=== PATIENT | male | born 1960 | race Caucasian/White ===

== ENCOUNTER 2018-10-25 17:32 | Inpatient (IN) | payer OTHER, MEDICAID ==
[2018-10-25 19:43] LABS: ADD MAN DIFF? NO
[2018-10-25 19:49] LABS: BASOPHILS % 0.1 % (0.0-2.0); EOSINOPHILS % 0.3 % (0.0-7.0); HEMATOCRIT 28.7 % (42.0-52.0); HEMOGLOBIN 9.8 g/dl (14.0-18.0); LYMPHOCYTES # 0.8 10^3/ul (0.8-2.9); MEAN CORPUSCULAR HEMOGLOBIN 29.6 pg (29.0-33.0); MEAN CORPUSCULAR HGB CONC 34.1 g/dl (32.0-37.0); MEAN CORPUSCULAR VOLUME 86.7 fl (82.0-101.0); MEAN PLATELET VOLUME 9.3 fl (7.4-10.4); MONOCYTE # 0.8 10^3/ul (0.3-0.9); MONOCYTES % 7.4 % (0.0-11.0); NEUTROPHIL # 8.6 10^3/ul (1.6-7.5); NEUTROPHILS % 83.5 % (39.0-77.0); PLATELET COUNT 343 10^3/UL (140-415); RED BLOOD COUNT 3.31 10^6/ul (4.70-6.10)
[2018-10-25 19:49] LABS: WHITE BLOOD COUNT 10.3 10^3/ul (4.8-10.8)
[2018-10-25 20:15] LABS: ANION GAP 4 (5-13); BLOOD UREA NITROGEN 25 mg/dl (7-20); CALCIUM 9.1 mg/dl (8.4-10.2); CARBON DIOXIDE 32 mmol/L (21-31); CHLORIDE 94 mmol/L (97-110); CREATININE 1.05 mg/dl (0.61-1.24); Estimated GFR > 60 mL/min (>60); POTASSIUM 4.8 mmol/L (3.5-5.1); SODIUM 130 mmol/L (135-144)
[2018-10-25 20:17] LABS: INR 0.88; PT RATIO 0.9
[2018-10-25 20:21] LABS: GLUCOSE 465 mg/dl (70-220)
[2018-10-25] MEDS ORDERED: ONDANSETRON 4 MG INJ IV ×2 (20:30→21:30)
[2018-10-25] MEDS ORDERED: ACETAMINOPHEN 325 MG TAB PO (20:30)
[2018-10-25 20:33] LABS: C-REACTIVE PROTEIN 20.3 mg/dl (0.0-0.9)
[2018-10-25] MEDS: PIPER-TAZO 3.375 GM IV (PMX) 100 ML IVPB (20:49)
[2018-10-25 20:54] LABS: ERYTHROCYTE SEDIMENTATION RATE 132 mm/Hr (0-20)
[2018-10-25] MEDS ORDERED: GLUCOSE GEL 15 GRAM TUBE PO ×2 (21:30)
[2018-10-25] MEDS ORDERED: GLUCAGON 1 MG INJ IM (21:30)
[2018-10-25] MEDS ORDERED: DEXTROSE 50% 50 ML SYRINGE IV ×2 (21:30)
[2018-10-25] MEDS ORDERED: VANCOMYCIN IV PER PHARMACY XX (21:30)
[2018-10-25] MEDS: SOD CHLORIDE 0.9% 1,000 ML IV ×2 (21:30→23:46)
[2018-10-25] MEDS ORDERED: GLUCOSE GEL 15 GRAM TUBE BUCCAL (21:30)
[2018-10-25] MEDS ORDERED: morphine 2 MG INJ IV (21:30)
[2018-10-25] MEDS ORDERED: HYDROCODONE/APAP (5/325) TAB PO (21:30)
[2018-10-25] MEDS: VANCOMYCIN 1 GM in 250 ML IVPB (23:54)
[2018-10-25] MEDS: DOCUSATE SODIUM 100 MG CAP PO (23:54)
[2018-10-26] MEDS: INSULIN ASPART [NOVOLOG] 3 ML PEN SC ×4 (00:03→17:54)
[2018-10-26] MEDS: ACCU-CHEK XX (02:00)
[2018-10-26] MEDS: PIPER-TAZO 3.375 GM IV (PMX) 100 ML IVPB ×3 (05:18→18:01)
[2018-10-26 05:49] LABS: ADD MAN DIFF? NO
[2018-10-26 05:59] LABS: BASOPHILS % 0.1 % (0.0-2.0); EOSINOPHILS # 0.1 10^3/ul (0.0-0.5); EOSINOPHILS % 0.5 % (0.0-7.0); HEMATOCRIT 24.3 % (42.0-52.0); HEMOGLOBIN 8.1 g/dl (14.0-18.0); LYMPHOCYTES # 1.1 10^3/ul (0.8-2.9); LYMPHOCYTES % 11.7 % (15.0-51.0); MEAN CORPUSCULAR HEMOGLOBIN 28.9 pg (29.0-33.0); MEAN CORPUSCULAR HGB CONC 33.3 g/dl (32.0-37.0); MEAN CORPUSCULAR VOLUME 86.8 fl (82.0-101.0); MEAN PLATELET VOLUME 9.3 fl (7.4-10.4); MONOCYTE # 0.7 10^3/ul (0.3-0.9); MONOCYTES % 7.5 % (0.0-11.0); NEUTROPHIL # 7.4 10^3/ul (1.6-7.5); NEUTROPHILS % 79.7 % (39.0-77.0); PLATELET COUNT 302 10^3/UL (140-415); RED CELL DISTRIBUTION WIDTH 11.9 % (11.5-14.5)
[2018-10-26 05:59] LABS: WHITE BLOOD COUNT 9.3 10^3/ul (4.8-10.8)
[2018-10-26 06:16] LABS: INR 0.98; PROTIME 13.1 Sec (11.9-14.9)
[2018-10-26 06:17] LABS: PARTIAL THROMBOPLASTIN TIME 31.2 Sec (23.0-35.0)
[2018-10-26 06:24] LABS: ALANINE AMINOTRANSFERASE 11 IU/L (13-69); ALBUMIN 2.6 g/dl (3.3-4.9); ALBUMIN/GLOBULIN RATIO 0.83; ALKALINE PHOSPHATASE 113 IU/L (42-121); ANION GAP 4 (5-13); ASPARTATE AMINO TRANSFERASE 17 IU/L (15-46); BILIRUBIN,INDIRECT 0.3 mg/dl (0-1.1); BILIRUBIN,TOTAL 0.3 mg/dl (0.2-1.3); BLOOD UREA NITROGEN 23 mg/dl (7-20); CALCIUM 8.6 mg/dl (8.4-10.2); CARBON DIOXIDE 29 mmol/L (21-31); CHLORIDE 102 mmol/L (97-110); CHOL/HDL RATIO 6.3 RATIO; CHOLESTEROL 211 mg/dl (100-200); CREATININE 0.92 mg/dl (0.61-1.24); Estimated GFR > 60 mL/min (>60); GLUCOSE 244 mg/dl (70-220); HDL CHOLESTEROL 33 mg/dl (28-71); LDL CHOLESTEROL,CALCULATED 143 mg/dl; SODIUM 135 mmol/L (135-144); TOTAL PROTEIN 5.7 g/dl (6.1-8.1); TRIGLYCERIDES 176 mg/dl (0-149)
[2018-10-26 06:53] LABS: C-REACTIVE PROTEIN 17.1 mg/dl (0.0-0.9)
[2018-10-26 06:57] LABS: HEMOGLOBIN A1C 11.4 % (0-5.9)
[2018-10-26] MEDS: DOCUSATE SODIUM 100 MG CAP PO ×2 (08:38→20:36)
[2018-10-26 09:10] LABS: ERYTHROCYTE SEDIMENTATION RATE 127 mm/Hr (0-20)
[2018-10-26] MEDS: VANCOMYCIN 750 MG (PMX) 250 ML IVPB (11:18)
[2018-10-26] MEDS ORDERED: PROPOFOL 20 ML (12:00)
[2018-10-26] MEDS ORDERED: FENTAnyl 50 MCG/ML VIAL (12:31)
[2018-10-26] MEDS ORDERED: MIDAZOLAM 1 MG/ML 2 ML INJ (12:31)
[2018-10-26] MEDS: BUPIVACAINE 0.5% (SDV) 30 ML INJ (12:59)
[2018-10-26] MEDS: POLYMYXIN/BACITRACIN 1L IRRIG (13:00)
[2018-10-26] MEDS: LIDOCAINE 1% (MPF) 30 ML INJ (13:00)
[2018-10-26] MEDS: SOD CHLORIDE 0.9% 1,000 ML IV ×2 (13:20→21:42)
[2018-10-26] MEDS ORDERED: ALBUMIN HUMAN 5% 250 ML IV (13:30)
[2018-10-26] MEDS ORDERED: LABETALOL HCL 20MG INJ IV (13:30)
[2018-10-26] MEDS ORDERED: MEPERIDINE 25 MG INJ IV (13:30)
[2018-10-26] MEDS ORDERED: FENTAnyl 50 MCG/ML VIAL IV ×2 (13:30)
[2018-10-26] MEDS ORDERED: METOCLOPRAMIDE 10 MG INJ IV (13:30)
[2018-10-26] MEDS ORDERED: OXYCODONE/ACETAMINOPHEN (5/325) TAB PO ×2 (13:30)
[2018-10-26] MEDS ORDERED: KETOROLAC 30 MG INJ IV (13:30)
[2018-10-26] MEDS ORDERED: HYDROmorphONE 1 MG/5 ML IV SYRINGE IV ×2 (13:30)
[2018-10-26] MEDS ORDERED: ONDANSETRON 4 MG INJ IV (13:30)
[2018-10-26] MEDS ORDERED: hydrALAzine 20 MG INJ IV (13:30)
[2018-10-26] MEDS ORDERED: EPHEDrine 25 MG/5 ML SYG IV (13:30)
[2018-10-26] MEDS ORDERED: DIPHENHYDRAMINE 50 MG INJ IV (13:30)
[2018-10-26] MEDS ORDERED: ALBUTEROL 0.083% (NEB) 2.5 MG/3 ML AMP HHN (13:30)
[2018-10-26] MEDS: Insulin NOVOLOG SS MILD Algorithm (SS with meals and bedtime) SC ×2 (17:25→20:37)
[2018-10-26] MEDS ORDERED: INSULIN ASPART [NOVOLOG] 3 ML PEN SC (17:30)
[2018-10-26] MEDS: INSULIN GLARGINE [LANTus] (100 UNITS/ML) SYG SC ×2 (20:43)
[2018-10-26] MEDS: hydrALAzine 20 MG INJ IV (21:43)
[2018-10-27] MEDS: PIPER-TAZO 3.375 GM IV (PMX) 100 ML IVPB ×2 (00:29→05:55)
[2018-10-27] MEDS: VANCOMYCIN 750 MG (PMX) 250 ML IVPB ×2 (00:29→10:50)
[2018-10-27] MEDS: ACCU-CHEK XX (02:00)
[2018-10-27] MEDS: SOD CHLORIDE 0.9% 1,000 ML IV (02:40)
[2018-10-27] MEDS: ACETAMINOPHEN 325 MG TAB PO (02:55)
[2018-10-27 05:52] LABS: ADD MAN DIFF? NO
[2018-10-27 05:59] LABS: BASOPHILS % 0.1 % (0.0-2.0); EOSINOPHILS % 0.2 % (0.0-7.0); HEMATOCRIT 24.3 % (42.0-52.0); HEMOGLOBIN 8.4 g/dl (14.0-18.0); LYMPHOCYTES # 0.9 10^3/ul (0.8-2.9); LYMPHOCYTES % 7.5 % (15.0-51.0); MEAN CORPUSCULAR HEMOGLOBIN 29.6 pg (29.0-33.0); MEAN CORPUSCULAR HGB CONC 34.6 g/dl (32.0-37.0); MEAN CORPUSCULAR VOLUME 85.6 fl (82.0-101.0); MEAN PLATELET VOLUME 9.2 fl (7.4-10.4); MONOCYTE # 0.9 10^3/ul (0.3-0.9); MONOCYTES % 8.1 % (0.0-11.0); NEUTROPHIL # 9.6 10^3/ul (1.6-7.5); NEUTROPHILS % 83.3 % (39.0-77.0); PLATELET COUNT 341 10^3/UL (140-415); RED BLOOD COUNT 2.84 10^6/ul (4.70-6.10); RED CELL DISTRIBUTION WIDTH 11.9 % (11.5-14.5)
[2018-10-27 05:59] LABS: WHITE BLOOD COUNT 11.5 10^3/ul (4.8-10.8)
[2018-10-27 06:20] LABS: MAGNESIUM 1.9 mg/dl (1.7-2.5)
[2018-10-27 06:20] LABS: PHOSPHORUS 3.5 mg/dl (2.5-4.9)
[2018-10-27 06:28] LABS: ALANINE AMINOTRANSFERASE 16 IU/L (13-69); ALBUMIN 2.5 g/dl (3.3-4.9); ALKALINE PHOSPHATASE 157 IU/L (42-121); ANION GAP 4 (5-13); ASPARTATE AMINO TRANSFERASE 22 IU/L (15-46); BILIRUBIN,INDIRECT 0.3 mg/dl (0-1.1); BILIRUBIN,TOTAL 0.3 mg/dl (0.2-1.3); BLOOD UREA NITROGEN 20 mg/dl (7-20); CALCIUM 8.4 mg/dl (8.4-10.2); CARBON DIOXIDE 27 mmol/L (21-31); CHLORIDE 105 mmol/L (97-110); CREATININE 0.94 mg/dl (0.61-1.24); Estimated GFR > 60 mL/min (>60); GLUCOSE 122 mg/dl (70-220); POTASSIUM 3.7 mmol/L (3.5-5.1); SODIUM 136 mmol/L (135-144); TOTAL PROTEIN 5.6 g/dl (6.1-8.1)
[2018-10-27] MEDS: Insulin NOVOLOG SS MILD Algorithm (SS with meals and bedtime) SC ×4 (07:00→21:00)
[2018-10-27] MEDS: DOCUSATE SODIUM 100 MG CAP PO ×2 (08:52→20:57)
[2018-10-27] MEDS: DAKINS 0.0125%(1/40) 473 ML SOLUTION TP (08:52)
[2018-10-27] MEDS: INSULIN ASPART [NOVOLOG] 3 ML PEN SC ×3 (09:00→17:56)
[2018-10-27] MEDS: LISINOPRIL 5 MG TAB PO (09:31)
[2018-10-27] MEDS: CHOLECALCIFEROL 2,000 UNIT CAP PO (09:31)
[2018-10-27 10:22] LABS: VANCOMYCIN,TROUGH 11.8 ug/ml (10.0-20.0)
[2018-10-27] MEDS: MEROPENEM 1 GM/50ML(PMX) 50 ML IVPB ×2 (10:48→21:37)
[2018-10-27] MEDS: CLINDAMYCIN 900 MG (PMX) 50 ML IVPB ×2 (12:50→17:50)
[2018-10-27] MEDS: BISACODYL (EC) 5 MG TAB PO (19:05)
[2018-10-27] MEDS: ATORVASTATIN 40 MG TAB PO (20:57)
[2018-10-27] MEDS: INSULIN GLARGINE [LANTus] (100 UNITS/ML) SYG SC (21:01)
[2018-10-27] MEDS: VANCOMYCIN 1 GM 250 ML IVPB (22:29)
[2018-10-28] MEDS: CLINDAMYCIN 900 MG (PMX) 50 ML IVPB ×3 (00:37→12:51)
[2018-10-28] MEDS: ACCU-CHEK XX (02:00)
[2018-10-28] MEDS: SOD CHLORIDE 0.9% 1,000 ML IV ×2 (02:16→17:41)
[2018-10-28] MEDS: INSULIN ASPART [NOVOLOG] 3 ML PEN SC ×8 (05:22→20:52)
[2018-10-28] MEDS: MEROPENEM 1 GM/50ML(PMX) 50 ML IVPB (05:24)
[2018-10-28 05:29] LABS: ADD MAN DIFF? NO
[2018-10-28 05:31] LABS: BASOPHILS % 0.3 % (0.0-2.0); EOSINOPHILS % 0.4 % (0.0-7.0); HEMATOCRIT 24.7 % (42.0-52.0); HEMOGLOBIN 8.6 g/dl (14.0-18.0); LYMPHOCYTES # 1.2 10^3/ul (0.8-2.9); LYMPHOCYTES % 11.3 % (15.0-51.0); MEAN CORPUSCULAR HGB CONC 34.8 g/dl (32.0-37.0); MEAN CORPUSCULAR VOLUME 86.1 fl (82.0-101.0); MEAN PLATELET VOLUME 9.2 fl (7.4-10.4); MONOCYTE # 0.8 10^3/ul (0.3-0.9); MONOCYTES % 8.2 % (0.0-11.0); NEUTROPHIL # 8.1 10^3/ul (1.6-7.5); NEUTROPHILS % 79.2 % (39.0-77.0); PLATELET COUNT 385 10^3/UL (140-415); RED BLOOD COUNT 2.87 10^6/ul (4.70-6.10); RED CELL DISTRIBUTION WIDTH 11.9 % (11.5-14.5)
[2018-10-28 05:31] LABS: WHITE BLOOD COUNT 10.2 10^3/ul (4.8-10.8)
[2018-10-28 06:02] LABS: MAGNESIUM 1.9 mg/dl (1.7-2.5)
[2018-10-28 06:02] LABS: PHOSPHORUS 3.5 mg/dl (2.5-4.9)
[2018-10-28 06:29] LABS: ALANINE AMINOTRANSFERASE 20 IU/L (13-69); ALBUMIN 2.5 g/dl (3.3-4.9); ALKALINE PHOSPHATASE 190 IU/L (42-121); ANION GAP 6 (5-13); ASPARTATE AMINO TRANSFERASE 20 IU/L (15-46); BILIRUBIN,INDIRECT 0.3 mg/dl (0-1.1); BILIRUBIN,TOTAL 0.3 mg/dl (0.2-1.3); BLOOD UREA NITROGEN 26 mg/dl (7-20); CALCIUM 8.4 mg/dl (8.4-10.2); CARBON DIOXIDE 25 mmol/L (21-31); CHLORIDE 104 mmol/L (97-110); CREATININE 1.06 mg/dl (0.61-1.24); Estimated GFR > 60 mL/min (>60); GLUCOSE 180 mg/dl (70-220); SODIUM 135 mmol/L (135-144); TOTAL PROTEIN 5.7 g/dl (6.1-8.1)
[2018-10-28 06:30] LABS: ALBUMIN/GLOBULIN RATIO 0.78
[2018-10-28] MEDS ORDERED: HEPARIN 1000 UNITS/ML 10 ML INJ (07:54)
[2018-10-28] MEDS: ASPIRIN (EC) 81 MG TAB PO (10:48)
[2018-10-28] MEDS: LISINOPRIL 5 MG TAB PO (10:48)
[2018-10-28] MEDS: CHOLECALCIFEROL 2,000 UNIT CAP PO (10:48)
[2018-10-28] MEDS: DOCUSATE SODIUM 100 MG CAP PO ×2 (10:48→20:49)
[2018-10-28] MEDS: CLOPIDOGREL 300 MG TAB PO (10:48)
[2018-10-28] MEDS: VANCOMYCIN 1 GM 250 ML IVPB ×2 (10:49→22:38)
[2018-10-28] MEDS: DAKINS 0.0125%(1/40) 473 ML SOLUTION TP (10:49)
[2018-10-28 11:16] LABS: ERYTHROCYTE SEDIMENTATION RATE > 130 mm/Hr (0-20)
[2018-10-28 11:21] LABS: C-REACTIVE PROTEIN 21.4 mg/dl (0.0-0.9)
[2018-10-28 12:25] LABS: PROCALCITONIN 0.33 ng/mL (0.00-0.10)
[2018-10-28] MEDS: BISACODYL (EC) 5 MG TAB PO (15:39)
[2018-10-28] MEDS: CEFTRIAXONE 1 GM/50 ML (PMX) 50 ML IVPB (17:07)
[2018-10-28] MEDS: ATORVASTATIN 40 MG TAB PO (20:49)
[2018-10-28] MEDS: INSULIN GLARGINE [LANTus] (100 UNITS/ML) SYG SC (20:51)
[2018-10-29] MEDS: ACCU-CHEK XX (02:00)
[2018-10-29 05:45] LABS: ADD MAN DIFF? NO
[2018-10-29 05:48] LABS: BASOPHILS % 0.1 % (0.0-2.0); EOSINOPHILS # 0.1 10^3/ul (0.0-0.5); EOSINOPHILS % 0.5 % (0.0-7.0); HEMATOCRIT 25.2 % (42.0-52.0); HEMOGLOBIN 8.5 g/dl (14.0-18.0); LYMPHOCYTES # 1.1 10^3/ul (0.8-2.9); LYMPHOCYTES % 10.9 % (15.0-51.0); MEAN CORPUSCULAR HEMOGLOBIN 29.4 pg (29.0-33.0); MEAN CORPUSCULAR HGB CONC 33.7 g/dl (32.0-37.0); MEAN CORPUSCULAR VOLUME 87.2 fl (82.0-101.0); MONOCYTE # 0.7 10^3/ul (0.3-0.9); NEUTROPHILS % 80.8 % (39.0-77.0); PLATELET COUNT 419 10^3/UL (140-415); RED BLOOD COUNT 2.89 10^6/ul (4.70-6.10); RED CELL DISTRIBUTION WIDTH 11.9 % (11.5-14.5)
[2018-10-29 05:48] LABS: WHITE BLOOD COUNT 9.9 10^3/ul (4.8-10.8)
[2018-10-29 06:11] LABS: ALANINE AMINOTRANSFERASE 17 IU/L (13-69); ALBUMIN 2.5 g/dl (3.3-4.9); ALBUMIN/GLOBULIN RATIO 0.73; ALKALINE PHOSPHATASE 207 IU/L (42-121); ANION GAP 4 (5-13); ASPARTATE AMINO TRANSFERASE 18 IU/L (15-46); BILIRUBIN,INDIRECT 0.2 mg/dl (0-1.1); BILIRUBIN,TOTAL 0.2 mg/dl (0.2-1.3); BLOOD UREA NITROGEN 30 mg/dl (7-20); CALCIUM 8.3 mg/dl (8.4-10.2); CARBON DIOXIDE 26 mmol/L (21-31); CHLORIDE 104 mmol/L (97-110); CREATININE 1.02 mg/dl (0.61-1.24); Estimated GFR > 60 mL/min (>60); GLUCOSE 179 mg/dl (70-220); POTASSIUM 3.9 mmol/L (3.5-5.1); SODIUM 134 mmol/L (135-144); TOTAL PROTEIN 5.9 g/dl (6.1-8.1)
[2018-10-29] MEDS: SOD CHLORIDE 0.9% 1,000 ML IV ×2 (06:36→21:11)
[2018-10-29 06:48] LABS: MAGNESIUM 1.9 mg/dl (1.7-2.5)
[2018-10-29 06:48] LABS: PHOSPHORUS 3.2 mg/dl (2.5-4.9)
[2018-10-29] MEDS: INSULIN ASPART [NOVOLOG] 3 ML PEN SC ×7 (08:54→21:15)
[2018-10-29] MEDS: ASPIRIN (EC) 81 MG TAB PO (09:31)
[2018-10-29] MEDS: DOCUSATE SODIUM 100 MG CAP PO ×2 (09:31→21:11)
[2018-10-29] MEDS: CHOLECALCIFEROL 2,000 UNIT CAP PO (09:31)
[2018-10-29] MEDS: BISACODYL (EC) 5 MG TAB PO (09:31)
[2018-10-29] MEDS: LISINOPRIL 5 MG TAB PO (09:31)
[2018-10-29] MEDS: CLOPIDOGREL 75 MG TAB PO (09:32)
[2018-10-29] MEDS: DAKINS 0.0125%(1/40) 473 ML SOLUTION TP (09:33)
[2018-10-29 10:27] LABS: VANCOMYCIN,TROUGH 18.9 ug/ml (10.0-20.0)
[2018-10-29] MEDS: VANCOMYCIN 1 GM 250 ML IVPB (11:47)
[2018-10-29 16:37] LABS: CREATININE, RANDOM URINE 50 mg/dL (20-320); MICROALBUMIN 128.4 mg/dL; MICROALBUMIN/CREATININE RATIO 2568 (<30)
[2018-10-29] MEDS: CEFTRIAXONE 1 GM/50 ML (PMX) 50 ML IVPB (17:03)
[2018-10-29] MEDS: ATORVASTATIN 40 MG TAB PO (21:11)
[2018-10-29] MEDS: INSULIN GLARGINE [LANTus] (100 UNITS/ML) SYG SC (21:14)
[2018-10-29] MEDS: HEPARIN 5,000 UNIT/1 ML VIAL SC (21:16)
[2018-10-29] MEDS: VANCOMYCIN 750 MG (PMX) 250 ML IVPB (23:11)
[2018-10-30] MEDS: ACCU-CHEK XX (01:22)
[2018-10-30 06:09] LABS: BLOOD UREA NITROGEN 25 mg/dl (7-20)
[2018-10-30 06:09] LABS: CREATININE 0.92 mg/dl (0.61-1.24)
[2018-10-30] MEDS: INSULIN ASPART [NOVOLOG] 3 ML PEN SC ×7 (08:00→21:00)
[2018-10-30] MEDS: DOCUSATE SODIUM 100 MG CAP PO ×2 (08:04→20:57)
[2018-10-30] MEDS: CLOPIDOGREL 75 MG TAB PO (08:04)
[2018-10-30] MEDS: ASPIRIN (EC) 81 MG TAB PO (08:04)
[2018-10-30] MEDS: LISINOPRIL 5 MG TAB PO (08:05)
[2018-10-30] MEDS: CHOLECALCIFEROL 2,000 UNIT CAP PO (08:05)
[2018-10-30] MEDS: HEPARIN 5,000 UNIT/1 ML VIAL SC ×2 (08:09→21:03)
[2018-10-30] MEDS: DAKINS 0.0125%(1/40) 473 ML SOLUTION TP (08:11)
[2018-10-30] MEDS: SOD CHLORIDE 0.9% 1,000 ML IV ×2 (11:12→16:36)
[2018-10-30 11:51] LABS: ERYTHROCYTE SEDIMENTATION RATE 120 mm/Hr (0-20)
[2018-10-30 11:58] LABS: C-REACTIVE PROTEIN 14.9 mg/dl (0.0-0.9)
[2018-10-30] MEDS: VANCOMYCIN 750 MG (PMX) 250 ML IVPB ×2 (12:14→22:45)
[2018-10-30 12:39] LABS: PROCALCITONIN 0.19 ng/mL (0.00-0.10)
[2018-10-30] MEDS: CEFTRIAXONE 1 GM/50 ML (PMX) 50 ML IVPB (16:35)
[2018-10-30] MEDS: ATORVASTATIN 40 MG TAB PO (20:57)
[2018-10-30] MEDS: INSULIN GLARGINE [LANTus] (100 UNITS/ML) SYG SC (21:17)
[2018-10-31] MEDS: SOD CHLORIDE 0.9% 1,000 ML IV (01:30)
[2018-10-31] MEDS: ACCU-CHEK XX (01:31)
[2018-10-31 05:27] LABS: ADD MAN DIFF? NO
[2018-10-31 05:36] LABS: HEMATOCRIT 26.5 % (42.0-52.0); HEMOGLOBIN 8.9 g/dl (14.0-18.0); MEAN CORPUSCULAR VOLUME 86.3 fl (82.0-101.0); RED BLOOD COUNT 3.07 10^6/ul (4.70-6.10)
[2018-10-31 05:36] LABS: WHITE BLOOD COUNT 8.1 10^3/ul (4.8-10.8)
[2018-10-31 05:37] LABS: BASOPHILS % 0.1 % (0.0-2.0); EOSINOPHILS # 0.1 10^3/ul (0.0-0.5); LYMPHOCYTES # 1.4 10^3/ul (0.8-2.9); LYMPHOCYTES % 16.9 % (15.0-51.0); MEAN CORPUSCULAR HGB CONC 33.6 g/dl (32.0-37.0); MONOCYTE # 0.7 10^3/ul (0.3-0.9); MONOCYTES % 8.3 % (0.0-11.0); NEUTROPHIL # 5.9 10^3/ul (1.6-7.5); NEUTROPHILS % 73.1 % (39.0-77.0); PLATELET COUNT 508 10^3/UL (140-415); RED CELL DISTRIBUTION WIDTH 11.9 % (11.5-14.5)
[2018-10-31 05:55] LABS: ANION GAP 4 (5-13); BLOOD UREA NITROGEN 21 mg/dl (7-20); CALCIUM 8.1 mg/dl (8.4-10.2); CARBON DIOXIDE 25 mmol/L (21-31); CHLORIDE 106 mmol/L (97-110); CREATININE 0.76 mg/dl (0.61-1.24); Estimated GFR > 60 mL/min (>60); GLUCOSE 87 mg/dl (70-220); POTASSIUM 3.9 mmol/L (3.5-5.1); SODIUM 135 mmol/L (135-144)
[2018-10-31] MEDS ORDERED: POLYMYXIN/BACITRACIN 1L IRRIG (07:28)
[2018-10-31] MEDS ORDERED: PROPOFOL 20 ML (07:40)
[2018-10-31] MEDS ORDERED: MIDAZOLAM 1 MG/ML 2 ML INJ (07:40)
[2018-10-31] MEDS ORDERED: FENTAnyl 50 MCG/ML VIAL (07:41)
[2018-10-31] MEDS ORDERED: ROPIVACAINE 0.2% 20 ML VIAL (07:41)
[2018-10-31] MEDS: INSULIN ASPART [NOVOLOG] 3 ML PEN SC ×7 (08:00→20:20)
[2018-10-31] MEDS ORDERED: OXYCODONE/ACETAMINOPHEN (5/325) TAB PO ×2 (08:00)
[2018-10-31] MEDS ORDERED: HYDROmorphONE 1 MG/5 ML IV SYRINGE IV ×3 (08:00)
[2018-10-31] MEDS ORDERED: LABETALOL HCL 20MG INJ IV (08:00)
[2018-10-31] MEDS ORDERED: ONDANSETRON 4 MG INJ IV (08:00)
[2018-10-31] MEDS ORDERED: FENTAnyl 50 MCG/ML VIAL IV ×3 (08:00)
[2018-10-31] MEDS: LISINOPRIL 5 MG TAB PO (09:00)
[2018-10-31] MEDS: CLOPIDOGREL 75 MG TAB PO (09:00)
[2018-10-31] MEDS: ASPIRIN (EC) 81 MG TAB PO (09:00)
[2018-10-31] MEDS: DAKINS 0.0125%(1/40) 473 ML SOLUTION TP (09:00)
[2018-10-31] MEDS: CHOLECALCIFEROL 2,000 UNIT CAP PO (09:00)
[2018-10-31] MEDS: HEPARIN 5,000 UNIT/1 ML VIAL SC ×2 (09:00→20:19)
[2018-10-31] MEDS: DOCUSATE SODIUM 100 MG CAP PO ×2 (09:29→21:32)
[2018-10-31] MEDS: hydrALAzine 20 MG INJ IV (10:00)
[2018-10-31] MEDS: VANCOMYCIN 750 MG (PMX) 250 ML IVPB ×2 (10:57→23:04)
[2018-10-31] MEDS: CEFTRIAXONE 1 GM/50 ML (PMX) 50 ML IVPB (15:17)
[2018-10-31] MEDS: INSULIN GLARGINE [LANTus] (100 UNITS/ML) SYG SC (20:18)
[2018-10-31] MEDS: ATORVASTATIN 40 MG TAB PO (20:19)
[2018-11-01] MEDS: ACCU-CHEK XX (01:54)
[2018-11-01 05:36] LABS: ADD MAN DIFF? NO
[2018-11-01 05:41] LABS: BASOPHILS % 0.2 % (0.0-2.0); EOSINOPHILS # 0.1 10^3/ul (0.0-0.5); EOSINOPHILS % 0.5 % (0.0-7.0); HEMATOCRIT 24.1 % (42.0-52.0); HEMOGLOBIN 8.4 g/dl (14.0-18.0); LYMPHOCYTES % 10.1 % (15.0-51.0); MEAN CORPUSCULAR HEMOGLOBIN 29.9 pg (29.0-33.0); MEAN CORPUSCULAR HGB CONC 34.9 g/dl (32.0-37.0); MEAN CORPUSCULAR VOLUME 85.8 fl (82.0-101.0); MEAN PLATELET VOLUME 8.8 fl (7.4-10.4); MONOCYTE # 0.8 10^3/ul (0.3-0.9); MONOCYTES % 7.9 % (0.0-11.0); NEUTROPHILS % 80.9 % (39.0-77.0); PLATELET COUNT 506 10^3/UL (140-415); RED BLOOD COUNT 2.81 10^6/ul (4.70-6.10); RED CELL DISTRIBUTION WIDTH 11.8 % (11.5-14.5)
[2018-11-01 05:41] LABS: WHITE BLOOD COUNT 9.9 10^3/ul (4.8-10.8)
[2018-11-01 06:01] LABS: ANION GAP 5 (5-13); BLOOD UREA NITROGEN 21 mg/dl (7-20); CALCIUM 8.1 mg/dl (8.4-10.2); CARBON DIOXIDE 24 mmol/L (21-31); CHLORIDE 106 mmol/L (97-110); CREATININE 0.71 mg/dl (0.61-1.24); Estimated GFR > 60 mL/min (>60); GLUCOSE 88 mg/dl (70-220); POTASSIUM 3.7 mmol/L (3.5-5.1); SODIUM 135 mmol/L (135-144)
[2018-11-01] MEDS: INSULIN ASPART [NOVOLOG] 3 ML PEN SC ×7 (08:00→21:04)
[2018-11-01] MEDS: LISINOPRIL 5 MG TAB PO (08:24)
[2018-11-01] MEDS: ASPIRIN (EC) 81 MG TAB PO (08:24)
[2018-11-01] MEDS: CLOPIDOGREL 75 MG TAB PO (08:24)
[2018-11-01] MEDS: HEPARIN 5,000 UNIT/1 ML VIAL SC ×2 (08:31→21:05)
[2018-11-01] MEDS: DAKINS 0.0125%(1/40) 473 ML SOLUTION TP (08:31)
[2018-11-01] MEDS: CHOLECALCIFEROL 2,000 UNIT CAP PO (10:30)
[2018-11-01] MEDS: DOCUSATE SODIUM 100 MG CAP PO ×2 (10:30→21:01)
[2018-11-01] MEDS: VANCOMYCIN 750 MG (PMX) 250 ML IVPB ×2 (10:33→23:38)
[2018-11-01] MEDS: BISACODYL (EC) 5 MG TAB PO (12:57)
[2018-11-01] MEDS: CEFTRIAXONE 1 GM/50 ML (PMX) 50 ML IVPB (17:35)
[2018-11-01] MEDS: ATORVASTATIN 40 MG TAB PO (21:01)
[2018-11-01] MEDS: INSULIN GLARGINE [LANTus] (100 UNITS/ML) SYG SC (21:04)
[2018-11-01 23:23] LABS: VANCOMYCIN,TROUGH 14.3 ug/ml (10.0-20.0)
[2018-11-02] MEDS: ACCU-CHEK XX (01:48)
[2018-11-02 05:56] LABS: ADD MAN DIFF? NO
[2018-11-02 06:23] LABS: WHITE BLOOD COUNT 7.7 10^3/ul (4.8-10.8)
[2018-11-02 06:23] LABS: BASOPHILS % 0.4 % (0.0-2.0); EOSINOPHILS # 0.1 10^3/ul (0.0-0.5); EOSINOPHILS % 0.8 % (0.0-7.0); HEMATOCRIT 23.4 % (42.0-52.0); LYMPHOCYTES # 1.1 10^3/ul (0.8-2.9); LYMPHOCYTES % 14.4 % (15.0-51.0); MEAN CORPUSCULAR HEMOGLOBIN 29.5 pg (29.0-33.0); MEAN CORPUSCULAR HGB CONC 34.2 g/dl (32.0-37.0); MEAN CORPUSCULAR VOLUME 86.3 fl (82.0-101.0); MEAN PLATELET VOLUME 8.8 fl (7.4-10.4); MONOCYTE # 0.6 10^3/ul (0.3-0.9); NEUTROPHIL # 5.8 10^3/ul (1.6-7.5); PLATELET COUNT 500 10^3/UL (140-415); RED BLOOD COUNT 2.71 10^6/ul (4.70-6.10); RED CELL DISTRIBUTION WIDTH 11.9 % (11.5-14.5)
[2018-11-02 06:48] LABS: ANION GAP 3 (5-13); BLOOD UREA NITROGEN 18 mg/dl (7-20); CARBON DIOXIDE 25 mmol/L (21-31); CHLORIDE 105 mmol/L (97-110); Estimated GFR > 60 mL/min (>60); GLUCOSE 88 mg/dl (70-220); POTASSIUM 3.9 mmol/L (3.5-5.1); SODIUM 133 mmol/L (135-144)
[2018-11-02] MEDS: INSULIN ASPART [NOVOLOG] 3 ML PEN SC ×7 (08:00→20:48)
[2018-11-02] MEDS: CHOLECALCIFEROL 2,000 UNIT CAP PO (08:13)
[2018-11-02] MEDS: CLOPIDOGREL 75 MG TAB PO (08:14)
[2018-11-02] MEDS: LISINOPRIL 5 MG TAB PO (08:14)
[2018-11-02] MEDS: ASPIRIN (EC) 81 MG TAB PO (08:14)
[2018-11-02] MEDS: HEPARIN 5,000 UNIT/1 ML VIAL SC ×2 (08:17→20:45)
[2018-11-02] MEDS: DAKINS 0.0125%(1/40) 473 ML SOLUTION TP (08:19)
[2018-11-02] MEDS: NACL 0.9% 3 ML SYG IV ×2 (08:19→17:52)
[2018-11-02] MEDS: DOCUSATE SODIUM 100 MG CAP PO ×2 (08:29→20:40)
[2018-11-02] MEDS: BISACODYL (EC) 5 MG TAB PO (08:29)
[2018-11-02] MEDS: VANCOMYCIN 750 MG (PMX) 250 ML IVPB ×2 (12:47→23:54)
[2018-11-02] MEDS: CEFTRIAXONE 1 GM/50 ML (PMX) 50 ML IVPB (16:55)
[2018-11-02] MEDS: ATORVASTATIN 40 MG TAB PO (20:40)
[2018-11-02] MEDS: INSULIN GLARGINE [LANTus] (100 UNITS/ML) SYG SC (20:44)
[2018-11-03] MEDS: ACCU-CHEK XX (02:00)
[2018-11-03 06:19] LABS: ADD MAN DIFF? NO
[2018-11-03 06:24] LABS: WHITE BLOOD COUNT 7.8 10^3/ul (4.8-10.8)
[2018-11-03 06:24] LABS: BASOPHILS % 0.4 % (0.0-2.0); EOSINOPHILS % 0.5 % (0.0-7.0); HEMATOCRIT 23.8 % (42.0-52.0); HEMOGLOBIN 8.3 g/dl (14.0-18.0); LYMPHOCYTES # 1.1 10^3/ul (0.8-2.9); LYMPHOCYTES % 13.5 % (15.0-51.0); MEAN CORPUSCULAR HEMOGLOBIN 29.3 pg (29.0-33.0); MEAN CORPUSCULAR HGB CONC 34.9 g/dl (32.0-37.0); MEAN CORPUSCULAR VOLUME 84.1 fl (82.0-101.0); MEAN PLATELET VOLUME 8.6 fl (7.4-10.4); MONOCYTE # 0.7 10^3/ul (0.3-0.9); MONOCYTES % 8.3 % (0.0-11.0); NEUTROPHILS % 76.7 % (39.0-77.0); PLATELET COUNT 537 10^3/UL (140-415); RED BLOOD COUNT 2.83 10^6/ul (4.70-6.10); RED CELL DISTRIBUTION WIDTH 11.8 % (11.5-14.5)
[2018-11-03 06:59] LABS: ANION GAP 4 (5-13); BLOOD UREA NITROGEN 19 mg/dl (7-20); CALCIUM 8.2 mg/dl (8.4-10.2); CARBON DIOXIDE 25 mmol/L (21-31); CHLORIDE 104 mmol/L (97-110); CREATININE 0.79 mg/dl (0.61-1.24); Estimated GFR > 60 mL/min (>60); GLUCOSE 66 mg/dl (70-220); POTASSIUM 3.8 mmol/L (3.5-5.1); SODIUM 133 mmol/L (135-144)
[2018-11-03] MEDS: INSULIN ASPART [NOVOLOG] 3 ML PEN SC ×7 (08:00→20:47)
[2018-11-03] MEDS: DAKINS 0.0125%(1/40) 473 ML SOLUTION TP (08:09)
[2018-11-03] MEDS: ASPIRIN (EC) 81 MG TAB PO (08:22)
[2018-11-03] MEDS: CHOLECALCIFEROL 2,000 UNIT CAP PO (08:22)
[2018-11-03] MEDS: CLOPIDOGREL 75 MG TAB PO (08:22)
[2018-11-03] MEDS: LISINOPRIL 5 MG TAB PO (08:23)
[2018-11-03] MEDS: HEPARIN 5,000 UNIT/1 ML VIAL SC ×2 (08:32→20:52)
[2018-11-03] MEDS: DOCUSATE SODIUM 100 MG CAP PO ×2 (08:33→20:45)
[2018-11-03] MEDS: VANCOMYCIN 750 MG (PMX) 250 ML IVPB ×2 (11:30→23:24)
[2018-11-03] MEDS: CEFTRIAXONE 1 GM/50 ML (PMX) 50 ML IVPB (16:36)
[2018-11-03] MEDS: ATORVASTATIN 40 MG TAB PO (20:46)
[2018-11-03] MEDS: INSULIN GLARGINE [LANTus] (100 UNITS/ML) SYG SC (20:51)
[2018-11-04] MEDS: ACCU-CHEK XX (02:00)
[2018-11-04 05:24] LABS: ADD MAN DIFF? NO
[2018-11-04 05:33] LABS: WHITE BLOOD COUNT 6.1 10^3/ul (4.8-10.8)
[2018-11-04 05:33] LABS: BASOPHILS % 0.5 % (0.0-2.0); EOSINOPHILS # 0.1 10^3/ul (0.0-0.5); EOSINOPHILS % 1.1 % (0.0-7.0); HEMATOCRIT 24.4 % (42.0-52.0); HEMOGLOBIN 8.4 g/dl (14.0-18.0); LYMPHOCYTES % 16.4 % (15.0-51.0); MEAN CORPUSCULAR HEMOGLOBIN 29.5 pg (29.0-33.0); MEAN CORPUSCULAR HGB CONC 34.4 g/dl (32.0-37.0); MEAN CORPUSCULAR VOLUME 85.6 fl (82.0-101.0); MEAN PLATELET VOLUME 8.7 fl (7.4-10.4); MONOCYTE # 0.5 10^3/ul (0.3-0.9); MONOCYTES % 8.5 % (0.0-11.0); NEUTROPHIL # 4.5 10^3/ul (1.6-7.5); NEUTROPHILS % 73.2 % (39.0-77.0); PLATELET COUNT 548 10^3/UL (140-415); RED BLOOD COUNT 2.85 10^6/ul (4.70-6.10); RED CELL DISTRIBUTION WIDTH 11.9 % (11.5-14.5)
[2018-11-04 06:56] LABS: ANION GAP 5 (5-13); BLOOD UREA NITROGEN 19 mg/dl (7-20); CARBON DIOXIDE 25 mmol/L (21-31); CHLORIDE 104 mmol/L (97-110); CREATININE 0.79 mg/dl (0.61-1.24); Estimated GFR > 60 mL/min (>60); GLUCOSE 72 mg/dl (70-220); POTASSIUM 3.9 mmol/L (3.5-5.1); SODIUM 134 mmol/L (135-144)
[2018-11-04] MEDS: INSULIN ASPART [NOVOLOG] 3 ML PEN SC ×7 (08:00→20:41)
[2018-11-04] MEDS: LISINOPRIL 5 MG TAB PO (08:38)
[2018-11-04] MEDS: CLOPIDOGREL 75 MG TAB PO (08:38)
[2018-11-04] MEDS: ASPIRIN (EC) 81 MG TAB PO (08:38)
[2018-11-04] MEDS: CHOLECALCIFEROL 2,000 UNIT CAP PO (08:38)
[2018-11-04] MEDS: HEPARIN 5,000 UNIT/1 ML VIAL SC ×2 (08:41→20:43)
[2018-11-04] MEDS: DAKINS 0.0125%(1/40) 473 ML SOLUTION TP (09:00)
[2018-11-04] MEDS: DOCUSATE SODIUM 100 MG CAP PO ×2 (09:52→20:41)
[2018-11-04] MEDS: VANCOMYCIN 750 MG (PMX) 250 ML IVPB ×2 (11:04→23:14)
[2018-11-04] MEDS: CEFTRIAXONE 1 GM/50 ML (PMX) 50 ML IVPB (16:31)
[2018-11-04] MEDS: ATORVASTATIN 40 MG TAB PO (20:41)
[2018-11-04] MEDS: INSULIN GLARGINE [LANTus] (100 UNITS/ML) SYG SC (20:45)
[2018-11-04] MEDS: BUMETANIDE 1 MG INJ IV (23:14)
[2018-11-05] MEDS: ACCU-CHEK XX (02:00)
[2018-11-05 05:39] LABS: ADD MAN DIFF? NO
[2018-11-05 05:45] LABS: BASOPHILS % 0.5 % (0.0-2.0); EOSINOPHILS # 0.1 10^3/ul (0.0-0.5); HEMATOCRIT 23.7 % (42.0-52.0); HEMOGLOBIN 8.2 g/dl (14.0-18.0); LYMPHOCYTES % 17.7 % (15.0-51.0); MEAN CORPUSCULAR HEMOGLOBIN 29.1 pg (29.0-33.0); MEAN CORPUSCULAR HGB CONC 34.6 g/dl (32.0-37.0); MEAN PLATELET VOLUME 8.7 fl (7.4-10.4); MONOCYTE # 0.5 10^3/ul (0.3-0.9); MONOCYTES % 8.2 % (0.0-11.0); NEUTROPHIL # 4.2 10^3/ul (1.6-7.5); NEUTROPHILS % 72.1 % (39.0-77.0); PLATELET COUNT 537 10^3/UL (140-415); RED BLOOD COUNT 2.82 10^6/ul (4.70-6.10)
[2018-11-05 05:45] LABS: WHITE BLOOD COUNT 5.9 10^3/ul (4.8-10.8)
[2018-11-05 06:06] LABS: ANION GAP 3 (5-13); BLOOD UREA NITROGEN 18 mg/dl (7-20); CARBON DIOXIDE 26 mmol/L (21-31); CHLORIDE 105 mmol/L (97-110); CREATININE 0.71 mg/dl (0.61-1.24); Estimated GFR > 60 mL/min (>60); GLUCOSE 82 mg/dl (70-220); POTASSIUM 3.8 mmol/L (3.5-5.1); SODIUM 134 mmol/L (135-144)
[2018-11-05 06:12] LABS: MAGNESIUM 1.8 mg/dl (1.7-2.5)
[2018-11-05 06:12] LABS: PHOSPHORUS 3.6 mg/dl (2.5-4.9)
[2018-11-05] MEDS: INSULIN ASPART [NOVOLOG] 3 ML PEN SC ×7 (08:00→20:41)
[2018-11-05] MEDS: CLOPIDOGREL 75 MG TAB PO (08:40)
[2018-11-05] MEDS: HEPARIN 5,000 UNIT/1 ML VIAL SC ×2 (08:40→20:43)
[2018-11-05] MEDS: CHOLECALCIFEROL 2,000 UNIT CAP PO (08:41)
[2018-11-05] MEDS: DAKINS 0.0125%(1/40) 473 ML SOLUTION TP (08:41)
[2018-11-05] MEDS: LISINOPRIL 5 MG TAB PO (08:41)
[2018-11-05] MEDS: DOCUSATE SODIUM 100 MG CAP PO ×2 (08:41→20:47)
[2018-11-05] MEDS: ASPIRIN (EC) 81 MG TAB PO (08:41)
[2018-11-05] MEDS: VANCOMYCIN 750 MG (PMX) 250 ML IVPB ×2 (11:30→23:24)
[2018-11-05] MEDS: CEFTRIAXONE 1 GM/50 ML (PMX) 50 ML IVPB (16:24)
[2018-11-05] MEDS: ATORVASTATIN 40 MG TAB PO (20:39)
[2018-11-05] MEDS: INSULIN GLARGINE [LANTus] (100 UNITS/ML) SYG SC (20:43)
[2018-11-05 22:58] LABS: VANCOMYCIN,TROUGH 15.1 ug/ml (10.0-20.0)
[2018-11-06] MEDS: ACCU-CHEK XX (00:41)
[2018-11-06] MEDS: INSULIN ASPART [NOVOLOG] 3 ML PEN SC ×7 (08:00→20:22)
[2018-11-06] MEDS: CLOPIDOGREL 75 MG TAB PO (08:52)
[2018-11-06] MEDS: CHOLECALCIFEROL 2,000 UNIT CAP PO (08:52)
[2018-11-06] MEDS: DOCUSATE SODIUM 100 MG CAP PO ×2 (08:52→20:21)
[2018-11-06] MEDS: LISINOPRIL 5 MG TAB PO (08:52)
[2018-11-06] MEDS: ASPIRIN (EC) 81 MG TAB PO (08:52)
[2018-11-06] MEDS: HEPARIN 5,000 UNIT/1 ML VIAL SC ×2 (08:58→20:24)
[2018-11-06] MEDS: DAKINS 0.0125%(1/40) 473 ML SOLUTION TP (09:00)
[2018-11-06] MEDS: ATORVASTATIN 40 MG TAB PO (20:21)
[2018-11-06] MEDS: INSULIN GLARGINE [LANTus] (100 UNITS/ML) SYG SC (20:24)
[2018-11-07] MEDS: ACCU-CHEK XX (01:09)
[2018-11-07] MEDS: FUROSEMIDE 40 MG INJ IV (01:09)
[2018-11-07] MEDS: INSULIN ASPART [NOVOLOG] 3 ML PEN SC ×7 (08:00→20:17)
[2018-11-07] MEDS: CLOPIDOGREL 75 MG TAB PO (08:12)
[2018-11-07] MEDS: ASPIRIN (EC) 81 MG TAB PO (08:12)
[2018-11-07] MEDS: HEPARIN 5,000 UNIT/1 ML VIAL SC ×2 (08:12→20:24)
[2018-11-07] MEDS: LISINOPRIL 5 MG TAB PO (08:12)
[2018-11-07] MEDS: CHOLECALCIFEROL 2,000 UNIT CAP PO (08:12)
[2018-11-07] MEDS: DAKINS 0.0125%(1/40) 473 ML SOLUTION TP (08:13)
[2018-11-07] MEDS: DOCUSATE SODIUM 100 MG CAP PO ×2 (08:19→20:17)
[2018-11-07] MEDS: ATORVASTATIN 40 MG TAB PO (20:17)
[2018-11-07] MEDS: INSULIN GLARGINE [LANTus] (100 UNITS/ML) SYG SC (20:23)
[2018-11-08] MEDS: ACCU-CHEK XX (02:00)
[2018-11-08] MEDS: INSULIN ASPART [NOVOLOG] 3 ML PEN SC ×7 (08:00→20:14)
[2018-11-08] MEDS: HEPARIN 5,000 UNIT/1 ML VIAL SC ×2 (08:13→20:16)
[2018-11-08] MEDS: DOCUSATE SODIUM 100 MG CAP PO ×3 (08:16→20:16)
[2018-11-08] MEDS: CLOPIDOGREL 75 MG TAB PO (08:17)
[2018-11-08] MEDS: LISINOPRIL 5 MG TAB PO (08:17)
[2018-11-08] MEDS: CHOLECALCIFEROL 2,000 UNIT CAP PO (08:17)
[2018-11-08] MEDS: ASPIRIN (EC) 81 MG TAB PO (08:17)
[2018-11-08] MEDS: DAKINS 0.0125%(1/40) 473 ML SOLUTION TP (08:19)
[2018-11-08] MEDS: POLYETHYLENE GLYCOL 17 GM PACKET PO (20:12)
[2018-11-08] MEDS: ATORVASTATIN 40 MG TAB PO (20:12)
[2018-11-08] MEDS: BISACODYL (EC) 5 MG TAB PO (20:12)
[2018-11-08] MEDS: INSULIN GLARGINE [LANTus] (100 UNITS/ML) SYG SC (20:15)
[2018-11-09] MEDS: ACCU-CHEK XX (02:00)
[2018-11-09] MEDS: INSULIN ASPART [NOVOLOG] 3 ML PEN SC ×7 (08:00→21:00)
[2018-11-09] MEDS: CLOPIDOGREL 75 MG TAB PO (08:46)
[2018-11-09] MEDS: ASPIRIN (EC) 81 MG TAB PO (08:46)
[2018-11-09] MEDS: CHOLECALCIFEROL 2,000 UNIT CAP PO (08:46)
[2018-11-09] MEDS: DAKINS 0.0125%(1/40) 473 ML SOLUTION TP (08:47)
[2018-11-09] MEDS: LISINOPRIL 5 MG TAB PO (08:47)
[2018-11-09] MEDS: POLYETHYLENE GLYCOL 17 GM PACKET PO (08:47)
[2018-11-09] MEDS: DOCUSATE SODIUM 100 MG CAP PO ×2 (08:51→21:24)
[2018-11-09] MEDS: HEPARIN 5,000 UNIT/1 ML VIAL SC ×2 (08:55→21:22)
[2018-11-09] MEDS: ATORVASTATIN 40 MG TAB PO (21:24)
[2018-11-09] MEDS: INSULIN GLARGINE [LANTus] (100 UNITS/ML) SYG SC (21:24)
[2018-11-10] MEDS: ACCU-CHEK XX (02:00)
[2018-11-10] MEDS: INSULIN ASPART [NOVOLOG] 3 ML PEN SC ×7 (08:00→20:52)
[2018-11-10] MEDS: HEPARIN 5,000 UNIT/1 ML VIAL SC ×2 (08:26→20:56)
[2018-11-10] MEDS: DOCUSATE SODIUM 100 MG CAP PO ×2 (08:26→20:53)
[2018-11-10] MEDS: CHOLECALCIFEROL 2,000 UNIT CAP PO (08:27)
[2018-11-10] MEDS: ASPIRIN (EC) 81 MG TAB PO (08:27)
[2018-11-10] MEDS: POLYETHYLENE GLYCOL 17 GM PACKET PO (08:27)
[2018-11-10] MEDS: CLOPIDOGREL 75 MG TAB PO (08:27)
[2018-11-10] MEDS: LISINOPRIL 5 MG TAB PO (08:28)
[2018-11-10] MEDS: DAKINS 0.0125%(1/40) 473 ML SOLUTION TP (08:28)
[2018-11-10] MEDS: CEFAZOLIN 2 GM/50 ML (PMX) 50 ML IVPB (14:00)
[2018-11-10] MEDS: INSULIN GLARGINE [LANTus] (100 UNITS/ML) SYG SC (20:51)
[2018-11-10] MEDS: ATORVASTATIN 40 MG TAB PO (20:52)
[2018-11-11] MEDS: ACCU-CHEK XX (01:30)
[2018-11-11 05:44] LABS: PLATELET COUNT 465 10^3/UL (140-415)
[2018-11-11 05:53] LABS: ADD MAN DIFF? NO
[2018-11-11 06:04] LABS: WHITE BLOOD COUNT 6.7 10^3/ul (4.8-10.8)
[2018-11-11 06:04] LABS: BASOPHILS % 0.5 % (0.0-2.0); EOSINOPHILS # 0.1 10^3/ul (0.0-0.5); EOSINOPHILS % 1.2 % (0.0-7.0); HEMATOCRIT 23.5 % (42.0-52.0); INR 0.92; LYMPHOCYTES # 1.2 10^3/ul (0.8-2.9); LYMPHOCYTES % 18.2 % (15.0-51.0); MEAN CORPUSCULAR HEMOGLOBIN 29.3 pg (29.0-33.0); MEAN CORPUSCULAR VOLUME 86.1 fl (82.0-101.0); MEAN PLATELET VOLUME 9.1 fl (7.4-10.4); MONOCYTE # 0.5 10^3/ul (0.3-0.9); MONOCYTES % 7.4 % (0.0-11.0); NEUTROPHIL # 4.8 10^3/ul (1.6-7.5); NEUTROPHILS % 72.4 % (39.0-77.0); PLATELET COUNT 456 10^3/UL (140-415); PROTIME 12.5 Sec (11.9-14.9); RED BLOOD COUNT 2.73 10^6/ul (4.70-6.10); RED CELL DISTRIBUTION WIDTH 12.7 % (11.5-14.5)
[2018-11-11 06:05] LABS: INR 0.93; PARTIAL THROMBOPLASTIN TIME 28.5 Sec (23.0-35.0); PROTIME 12.6 Sec (11.9-14.9)
[2018-11-11 06:14] LABS: ALANINE AMINOTRANSFERASE 61 IU/L (13-69); ALBUMIN 2.2 g/dl (3.3-4.9); ALBUMIN/GLOBULIN RATIO 0.75; ALKALINE PHOSPHATASE 215 IU/L (42-121); ANION GAP 1 (5-13); ASPARTATE AMINO TRANSFERASE 42 IU/L (15-46); BILIRUBIN,INDIRECT 0.2 mg/dl (0-1.1); BILIRUBIN,TOTAL 0.2 mg/dl (0.2-1.3); BLOOD UREA NITROGEN 33 mg/dl (7-20); CALCIUM 7.8 mg/dl (8.4-10.2); CARBON DIOXIDE 30 mmol/L (21-31); CHLORIDE 99 mmol/L (97-110); CREATININE 0.96 mg/dl (0.61-1.24); Estimated GFR > 60 mL/min (>60); GLUCOSE 203 mg/dl (70-220); POTASSIUM 4.2 mmol/L (3.5-5.1); SODIUM 130 mmol/L (135-144); TOTAL PROTEIN 5.1 g/dl (6.1-8.1)
[2018-11-11] MEDS ORDERED: MINERAL OIL LIGHT 10 ML VIAL (06:48)
[2018-11-11] MEDS ORDERED: LIDOCAINE 1% (MPF) 30 ML INJ (06:48)
[2018-11-11] MEDS ORDERED: MIDAZOLAM 1 MG/ML 2 ML INJ (07:12)
[2018-11-11] MEDS ORDERED: PROPOFOL 20 ML (07:12)
[2018-11-11] MEDS ORDERED: FENTAnyl 50 MCG/ML VIAL (07:13)
[2018-11-11] MEDS ORDERED: hydrALAzine 20 MG INJ IV (08:00)
[2018-11-11] MEDS ORDERED: METOCLOPRAMIDE 10 MG INJ IV (08:00)
[2018-11-11] MEDS ORDERED: MEPERIDINE 25 MG INJ IV (08:00)
[2018-11-11] MEDS ORDERED: HYDROmorphONE 1 MG/5 ML IV SYRINGE IV ×2 (08:00)
[2018-11-11] MEDS ORDERED: FENTAnyl 50 MCG/ML VIAL IV ×2 (08:00)
[2018-11-11] MEDS ORDERED: ONDANSETRON 4 MG INJ IV (08:00)
[2018-11-11] MEDS ORDERED: LABETALOL HCL 20MG INJ IV (08:00)
[2018-11-11] MEDS: POLYMYXIN/BACITRACIN 1L IRRIG IRR (08:09)
[2018-11-11] MEDS: INSULIN ASPART [NOVOLOG] 3 ML PEN SC ×7 (09:38→23:24)
[2018-11-11] MEDS ORDERED: POLYMYXIN/BACITRACIN 1L IRRIG (10:00)
[2018-11-11] MEDS: HEPARIN 5,000 UNIT/1 ML VIAL SC ×2 (10:03→21:01)
[2018-11-11] MEDS: ASPIRIN (EC) 81 MG TAB PO (10:04)
[2018-11-11] MEDS: CLOPIDOGREL 75 MG TAB PO (10:04)
[2018-11-11] MEDS: LISINOPRIL 5 MG TAB PO (10:05)
[2018-11-11] MEDS: CHOLECALCIFEROL 2,000 UNIT CAP PO (10:05)
[2018-11-11] MEDS: DOCUSATE SODIUM 100 MG CAP PO ×2 (10:06→20:49)
[2018-11-11] MEDS: POLYETHYLENE GLYCOL 17 GM PACKET PO (10:06)
[2018-11-11] MEDS: DAKINS 0.0125%(1/40) 473 ML SOLUTION TP (10:08)
[2018-11-11 18:29] LABS: HEMATOCRIT 19.8 % (42.0-52.0)
[2018-11-11 18:32] LABS: HEMOGLOBIN 6.8 g/dl (14.0-18.0)
[2018-11-11] MEDS: ATORVASTATIN 40 MG TAB PO (20:49)
[2018-11-11] MEDS: INSULIN GLARGINE [LANTus] (100 UNITS/ML) SYG SC (23:24)
[2018-11-12] MEDS: ACCU-CHEK XX (01:58)
[2018-11-12] MEDS: INSULIN ASPART [NOVOLOG] 3 ML PEN SC ×7 (08:00→20:38)
[2018-11-12] MEDS: POLYETHYLENE GLYCOL 17 GM PACKET PO (08:47)
[2018-11-12] MEDS: DAKINS 0.0125%(1/40) 473 ML SOLUTION TP (08:48)
[2018-11-12] MEDS: CHOLECALCIFEROL 2,000 UNIT CAP PO (08:48)
[2018-11-12] MEDS: ASPIRIN (EC) 81 MG TAB PO (08:48)
[2018-11-12] MEDS: CLOPIDOGREL 75 MG TAB PO (08:48)
[2018-11-12] MEDS: LISINOPRIL 5 MG TAB PO (08:48)
[2018-11-12] MEDS: DOCUSATE SODIUM 100 MG CAP PO ×2 (08:48→20:35)
[2018-11-12] MEDS: HEPARIN 5,000 UNIT/1 ML VIAL SC ×2 (08:50→20:39)
[2018-11-12 09:44] LABS: ADD MAN DIFF? NO
[2018-11-12 09:46] LABS: BASOPHILS % 0.4 % (0.0-2.0); EOSINOPHILS # 0.1 10^3/ul (0.0-0.5); EOSINOPHILS % 0.7 % (0.0-7.0); HEMATOCRIT 21.8 % (42.0-52.0); HEMOGLOBIN 7.6 g/dl (14.0-18.0); LYMPHOCYTES # 1.3 10^3/ul (0.8-2.9); LYMPHOCYTES % 16.2 % (15.0-51.0); MEAN CORPUSCULAR HGB CONC 34.9 g/dl (32.0-37.0); MEAN CORPUSCULAR VOLUME 86.2 fl (82.0-101.0); MONOCYTE # 0.6 10^3/ul (0.3-0.9); MONOCYTES % 7.3 % (0.0-11.0); NEUTROPHIL # 6.1 10^3/ul (1.6-7.5); NEUTROPHILS % 75.2 % (39.0-77.0); PLATELET COUNT 392 10^3/UL (140-415); RED BLOOD COUNT 2.53 10^6/ul (4.70-6.10)
[2018-11-12 09:46] LABS: WHITE BLOOD COUNT 8.1 10^3/ul (4.8-10.8)
[2018-11-12 10:06] LABS: ANION GAP 3 (5-13); BLOOD UREA NITROGEN 35 mg/dl (7-20); CALCIUM 7.7 mg/dl (8.4-10.2); CARBON DIOXIDE 29 mmol/L (21-31); CHLORIDE 99 mmol/L (97-110); CREATININE 0.88 mg/dl (0.61-1.24); Estimated GFR > 60 mL/min (>60); GLUCOSE 110 mg/dl (70-220); POTASSIUM 4.1 mmol/L (3.5-5.1); SODIUM 131 mmol/L (135-144)
[2018-11-12] MEDS: ATORVASTATIN 40 MG TAB PO (20:35)
[2018-11-12] MEDS: INSULIN GLARGINE [LANTus] (100 UNITS/ML) SYG SC (20:37)
[2018-11-12] MEDS ORDERED: INSULIN GLARGINE [LANTus] (100 UNITS/ML) SYG SC (22:30)
[2018-11-13] MEDS: ACCU-CHEK XX (02:00)
[2018-11-13] MEDS: POLYETHYLENE GLYCOL 17 GM PACKET PO (08:42)
[2018-11-13] MEDS: CLOPIDOGREL 75 MG TAB PO (08:43)
[2018-11-13] MEDS: CHOLECALCIFEROL 2,000 UNIT CAP PO (08:43)
[2018-11-13] MEDS: ASPIRIN (EC) 81 MG TAB PO (08:43)
[2018-11-13] MEDS: LISINOPRIL 5 MG TAB PO (08:44)
[2018-11-13] MEDS: INSULIN ASPART [NOVOLOG] 3 ML PEN SC ×7 (08:48→20:34)
[2018-11-13] MEDS: HEPARIN 5,000 UNIT/1 ML VIAL SC ×2 (08:49→20:33)
[2018-11-13] MEDS: DAKINS 0.0125%(1/40) 473 ML SOLUTION TP (08:55)
[2018-11-13] MEDS: DOCUSATE SODIUM 100 MG CAP PO ×2 (09:13→20:35)
[2018-11-13 10:54] LABS: WHITE BLOOD COUNT 7.2 10^3/ul (4.8-10.8)
[2018-11-13 10:54] LABS: ABNORMAL IP MESSAGE 1; HEMATOCRIT 19.4 % (42.0-52.0); MEAN CORPUSCULAR HEMOGLOBIN 30.3 pg (29.0-33.0); MEAN CORPUSCULAR HGB CONC 34.5 g/dl (32.0-37.0); MEAN CORPUSCULAR VOLUME 87.8 fl (82.0-101.0); MEAN PLATELET VOLUME 9.3 fl (7.4-10.4); PLATELET COUNT 333 10^3/UL (140-415); POSITIVE DIFF @See below; RED BLOOD COUNT 2.21 10^6/ul (4.70-6.10)
[2018-11-13 10:59] LABS: ADD MAN DIFF? YES; HEMOGLOBIN 6.7 g/dl (14.0-18.0)
[2018-11-13 11:10] LABS: ANION GAP 1 (5-13); BLOOD UREA NITROGEN 31 mg/dl (7-20); CALCIUM 7.7 mg/dl (8.4-10.2); CARBON DIOXIDE 28 mmol/L (21-31); CHLORIDE 101 mmol/L (97-110); CREATININE 0.92 mg/dl (0.61-1.24); Estimated GFR > 60 mL/min (>60); GLUCOSE 138 mg/dl (70-220); POTASSIUM 4.5 mmol/L (3.5-5.1); SODIUM 130 mmol/L (135-144)
[2018-11-13 12:48] LABS: ANISOCYTOSIS 1+ (0-0); BAND NEUTROPHILS % (M) 1 % (0-4); BURR CELLS 1+ (0-0); EOSINOPHILS % (M) 1 % (0-7); LYMPHOCYTES #M 0.7 10^3/ul (0.8-2.9); LYMPHOCYTES % (M) 11 % (15-51); MICROCYTOSIS 1+ (0-0); MONOCYTE #M 0.3 10^3/ul (0.3-0.9); MONOCYTES % (M) 5 % (0-11); PLATELET ESTIMATE NORMAL; POIKILOCYTOSIS 1+ (0-0); SEG NEUT #M 5.9 10^3/ul (1.6-7.5); SEGMENTED NEUTROPHILS (M) % 82 % (39-77); SMUDGE%M 5 % (0-0)
[2018-11-13] MEDS: FLUCONAZOLE 200 MG TAB PO ×2 (13:04→20:27)
[2018-11-13] MEDS: CIPROFLOXACIN 250 MG TAB PO ×2 (13:04→20:27)
[2018-11-13 13:54] LABS: IMMEDIATE SPIN CROSSMATCH 1 2
[2018-11-13] MEDS: SOD CHLORIDE 0.9% 250 ML IV* (14:18)
[2018-11-13] MEDS: ATORVASTATIN 40 MG TAB PO (20:27)
[2018-11-13] MEDS: INSULIN GLARGINE [LANTus] (100 UNITS/ML) SYG SC (20:35)
[2018-11-14] MEDS: ACCU-CHEK XX (02:00)
[2018-11-14 06:18] LABS: ADD MAN DIFF? NO
[2018-11-14 06:24] LABS: BASOPHILS % 0.3 % (0.0-2.0); EOSINOPHILS # 0.1 10^3/ul (0.0-0.5); EOSINOPHILS % 0.9 % (0.0-7.0); HEMATOCRIT 24.1 % (42.0-52.0); HEMOGLOBIN 8.1 g/dl (14.0-18.0); LYMPHOCYTES # 1.1 10^3/ul (0.8-2.9); LYMPHOCYTES % 19.2 % (15.0-51.0); MEAN CORPUSCULAR HEMOGLOBIN 28.8 pg (29.0-33.0); MEAN CORPUSCULAR HGB CONC 33.6 g/dl (32.0-37.0); MEAN CORPUSCULAR VOLUME 85.8 fl (82.0-101.0); MEAN PLATELET VOLUME 9.3 fl (7.4-10.4); MONOCYTE # 0.5 10^3/ul (0.3-0.9); MONOCYTES % 8.9 % (0.0-11.0); NEUTROPHILS % 70.4 % (39.0-77.0); PLATELET COUNT 365 10^3/UL (140-415); RED BLOOD COUNT 2.81 10^6/ul (4.70-6.10); RED CELL DISTRIBUTION WIDTH 13.7 % (11.5-14.5)
[2018-11-14 06:24] LABS: WHITE BLOOD COUNT 5.7 10^3/ul (4.8-10.8)
[2018-11-14 06:50] LABS: ANION GAP 2 (5-13); BLOOD UREA NITROGEN 28 mg/dl (7-20); CARBON DIOXIDE 28 mmol/L (21-31); CHLORIDE 101 mmol/L (97-110); CREATININE 0.88 mg/dl (0.61-1.24); Estimated GFR > 60 mL/min (>60); GLUCOSE 110 mg/dl (70-220); POTASSIUM 4.3 mmol/L (3.5-5.1); SODIUM 131 mmol/L (135-144)
[2018-11-14] MEDS: INSULIN ASPART [NOVOLOG] 3 ML PEN SC ×7 (08:00→20:50)
[2018-11-14] MEDS: CLOPIDOGREL 75 MG TAB PO (08:29)
[2018-11-14] MEDS: CIPROFLOXACIN 250 MG TAB PO ×2 (08:29→20:46)
[2018-11-14] MEDS: ASPIRIN (EC) 81 MG TAB PO (08:29)
[2018-11-14] MEDS: CHOLECALCIFEROL 2,000 UNIT CAP PO (08:29)
[2018-11-14] MEDS: FLUCONAZOLE 200 MG TAB PO ×2 (08:29→20:56)
[2018-11-14] MEDS: LISINOPRIL 5 MG TAB PO (08:30)
[2018-11-14] MEDS: HEPARIN 5,000 UNIT/1 ML VIAL SC ×2 (08:32→20:54)
[2018-11-14] MEDS: POLYETHYLENE GLYCOL 17 GM PACKET PO (08:33)
[2018-11-14] MEDS: DAKINS 0.0125%(1/40) 473 ML SOLUTION TP (08:36)
[2018-11-14] MEDS: DOCUSATE SODIUM 100 MG CAP PO ×2 (10:20→20:45)
[2018-11-14] MEDS: hydrALAzine 20 MG INJ IV (15:48)
[2018-11-14] MEDS: ATORVASTATIN 40 MG TAB PO (20:45)
[2018-11-14] MEDS: INSULIN GLARGINE [LANTus] (100 UNITS/ML) SYG SC (20:52)
[2018-11-15] MEDS: ACCU-CHEK XX ×2 (02:00→02:19)
[2018-11-15 06:30] LABS: ADD MAN DIFF? NO
[2018-11-15 06:36] LABS: BASOPHILS % 0.7 % (0.0-2.0); EOSINOPHILS # 0.1 10^3/ul (0.0-0.5); EOSINOPHILS % 1.5 % (0.0-7.0); HEMATOCRIT 23.6 % (42.0-52.0); LYMPHOCYTES # 1.1 10^3/ul (0.8-2.9); LYMPHOCYTES % 18.9 % (15.0-51.0); MEAN CORPUSCULAR HGB CONC 33.9 g/dl (32.0-37.0); MEAN CORPUSCULAR VOLUME 85.5 fl (82.0-101.0); MEAN PLATELET VOLUME 9.6 fl (7.4-10.4); MONOCYTE # 0.5 10^3/ul (0.3-0.9); MONOCYTES % 7.8 % (0.0-11.0); NEUTROPHIL # 4.2 10^3/ul (1.6-7.5); NEUTROPHILS % 70.8 % (39.0-77.0); PLATELET COUNT 367 10^3/UL (140-415); RED BLOOD COUNT 2.76 10^6/ul (4.70-6.10); RED CELL DISTRIBUTION WIDTH 14.1 % (11.5-14.5)
[2018-11-15 06:36] LABS: WHITE BLOOD COUNT 5.9 10^3/ul (4.8-10.8)
[2018-11-15 06:57] LABS: ANION GAP 0 (5-13); BLOOD UREA NITROGEN 28 mg/dl (7-20); CALCIUM 7.7 mg/dl (8.4-10.2); CARBON DIOXIDE 29 mmol/L (21-31); CHLORIDE 101 mmol/L (97-110); CREATININE 0.82 mg/dl (0.61-1.24); Estimated GFR > 60 mL/min (>60); GLUCOSE 176 mg/dl (70-220); POTASSIUM 4.4 mmol/L (3.5-5.1); SODIUM 130 mmol/L (135-144)
[2018-11-15] MEDS: CHOLECALCIFEROL 2,000 UNIT CAP PO (08:03)
[2018-11-15] MEDS: CIPROFLOXACIN 250 MG TAB PO (08:03)
[2018-11-15] MEDS: CLOPIDOGREL 75 MG TAB PO (08:04)
[2018-11-15] MEDS: ASPIRIN (EC) 81 MG TAB PO (08:04)
[2018-11-15] MEDS: LISINOPRIL 5 MG TAB PO (08:04)
[2018-11-15] MEDS: POLYETHYLENE GLYCOL 17 GM PACKET PO (08:04)
[2018-11-15] MEDS: DOCUSATE SODIUM 100 MG CAP PO ×2 (08:04→20:19)
[2018-11-15] MEDS: DAKINS 0.0125%(1/40) 473 ML SOLUTION TP (08:04)
[2018-11-15] MEDS: HEPARIN 5,000 UNIT/1 ML VIAL SC ×2 (08:06→20:24)
[2018-11-15] MEDS: INSULIN ASPART [NOVOLOG] 3 ML PEN SC ×7 (08:07→20:20)
[2018-11-15] MEDS: FLUCONAZOLE 200 MG TAB PO ×2 (09:52→20:19)
[2018-11-15] MEDS: ATORVASTATIN 40 MG TAB PO (20:19)
[2018-11-15] MEDS: CEFEPIME 1GM/50 ML (PMX) 50 ML IVPB (20:19)
[2018-11-15] MEDS: INSULIN GLARGINE [LANTus] (100 UNITS/ML) SYG SC (20:23)
[2018-11-16] MEDS: ACCU-CHEK XX (02:00)
[2018-11-16 06:17] LABS: ADD MAN DIFF? NO
[2018-11-16 06:22] LABS: WHITE BLOOD COUNT 5.8 10^3/ul (4.8-10.8)
[2018-11-16 06:22] LABS: BASOPHILS % 0.5 % (0.0-2.0); EOSINOPHILS # 0.1 10^3/ul (0.0-0.5); EOSINOPHILS % 2.1 % (0.0-7.0); HEMATOCRIT 23.3 % (42.0-52.0); HEMOGLOBIN 7.9 g/dl (14.0-18.0); LYMPHOCYTES # 1.4 10^3/ul (0.8-2.9); LYMPHOCYTES % 23.9 % (15.0-51.0); MEAN CORPUSCULAR HEMOGLOBIN 29.5 pg (29.0-33.0); MEAN CORPUSCULAR HGB CONC 33.9 g/dl (32.0-37.0); MEAN CORPUSCULAR VOLUME 86.9 fl (82.0-101.0); MEAN PLATELET VOLUME 9.1 fl (7.4-10.4); MONOCYTE # 0.6 10^3/ul (0.3-0.9); MONOCYTES % 9.5 % (0.0-11.0); NEUTROPHIL # 3.7 10^3/ul (1.6-7.5); NEUTROPHILS % 63.7 % (39.0-77.0); PLATELET COUNT 343 10^3/UL (140-415); RED BLOOD COUNT 2.68 10^6/ul (4.70-6.10); RED CELL DISTRIBUTION WIDTH 13.8 % (11.5-14.5)
[2018-11-16] MEDS: BISACODYL (EC) 5 MG TAB PO (06:42)
[2018-11-16 06:46] LABS: ANION GAP 2 (5-13); BLOOD UREA NITROGEN 26 mg/dl (7-20); CALCIUM 7.9 mg/dl (8.4-10.2); CARBON DIOXIDE 29 mmol/L (21-31); CHLORIDE 101 mmol/L (97-110); CREATININE 0.99 mg/dl (0.61-1.24); Estimated GFR > 60 mL/min (>60); GLUCOSE 87 mg/dl (70-220); POTASSIUM 4.1 mmol/L (3.5-5.1); SODIUM 132 mmol/L (135-144)
[2018-11-16] MEDS: INSULIN ASPART [NOVOLOG] 3 ML PEN SC ×7 (08:00→20:48)
[2018-11-16] MEDS: HEPARIN 5,000 UNIT/1 ML VIAL SC ×2 (09:00→20:46)
[2018-11-16] MEDS: DAKINS 0.0125%(1/40) 473 ML SOLUTION TP (09:00)
[2018-11-16] MEDS: POLYETHYLENE GLYCOL 17 GM PACKET PO (09:09)
[2018-11-16] MEDS: CEFEPIME 1GM/50 ML (PMX) 50 ML IVPB ×2 (09:09→20:42)
[2018-11-16] MEDS: ASPIRIN (EC) 81 MG TAB PO (09:09)
[2018-11-16] MEDS: DOCUSATE SODIUM 100 MG CAP PO ×2 (09:09→20:42)
[2018-11-16] MEDS: CLOPIDOGREL 75 MG TAB PO (09:09)
[2018-11-16] MEDS: FLUCONAZOLE 200 MG TAB PO ×2 (09:09→20:42)
[2018-11-16] MEDS: CHOLECALCIFEROL 2,000 UNIT CAP PO (09:10)
[2018-11-16] MEDS: LISINOPRIL 5 MG TAB PO (09:10)
[2018-11-16 11:01] LABS: OCCULT BLOOD STOOL NEGATIVE (NEGATIVE)
[2018-11-16] MEDS: hydrALAzine 20 MG INJ IV (18:00)
[2018-11-16] MEDS: ATORVASTATIN 40 MG TAB PO (20:42)
[2018-11-16] MEDS: INSULIN GLARGINE [LANTus] (100 UNITS/ML) SYG SC (20:47)
[2018-11-17] MEDS: ACCU-CHEK XX (02:00)
[2018-11-17 06:48] LABS: ADD MAN DIFF? NO
[2018-11-17 06:56] LABS: WHITE BLOOD COUNT 5.3 10^3/ul (4.8-10.8)
[2018-11-17 06:56] LABS: BASOPHILS % 0.4 % (0.0-2.0); EOSINOPHILS # 0.1 10^3/ul (0.0-0.5); EOSINOPHILS % 2.6 % (0.0-7.0); HEMATOCRIT 24.2 % (42.0-52.0); HEMOGLOBIN 8.1 g/dl (14.0-18.0); LYMPHOCYTES # 1.3 10^3/ul (0.8-2.9); LYMPHOCYTES % 24.6 % (15.0-51.0); MEAN CORPUSCULAR HEMOGLOBIN 28.9 pg (29.0-33.0); MEAN CORPUSCULAR HGB CONC 33.5 g/dl (32.0-37.0); MEAN CORPUSCULAR VOLUME 86.4 fl (82.0-101.0); MEAN PLATELET VOLUME 8.9 fl (7.4-10.4); MONOCYTE # 0.6 10^3/ul (0.3-0.9); MONOCYTES % 10.3 % (0.0-11.0); NEUTROPHIL # 3.3 10^3/ul (1.6-7.5); NEUTROPHILS % 61.7 % (39.0-77.0); PLATELET COUNT 360 10^3/UL (140-415); RED CELL DISTRIBUTION WIDTH 13.7 % (11.5-14.5)
[2018-11-17 07:39] LABS: ANION GAP 4 (5-13); BLOOD UREA NITROGEN 24 mg/dl (7-20); CALCIUM 7.9 mg/dl (8.4-10.2); CARBON DIOXIDE 26 mmol/L (21-31); CHLORIDE 102 mmol/L (97-110); CREATININE 0.86 mg/dl (0.61-1.24); Estimated GFR > 60 mL/min (>60); GLUCOSE 75 mg/dl (70-220); POTASSIUM 4.1 mmol/L (3.5-5.1); SODIUM 132 mmol/L (135-144)
[2018-11-17] MEDS: INSULIN ASPART [NOVOLOG] 3 ML PEN SC ×7 (08:00→20:43)
[2018-11-17] MEDS: CEFEPIME 1GM/50 ML (PMX) 50 ML IVPB ×2 (08:07→20:38)
[2018-11-17] MEDS: CLOPIDOGREL 75 MG TAB PO (08:09)
[2018-11-17] MEDS: CHOLECALCIFEROL 2,000 UNIT CAP PO (08:09)
[2018-11-17] MEDS: ASPIRIN (EC) 81 MG TAB PO (08:09)
[2018-11-17] MEDS: FLUCONAZOLE 200 MG TAB PO ×2 (08:09→20:38)
[2018-11-17] MEDS: LISINOPRIL 5 MG TAB PO (08:09)
[2018-11-17] MEDS: POLYETHYLENE GLYCOL 17 GM PACKET PO (08:09)
[2018-11-17] MEDS: HEPARIN 5,000 UNIT/1 ML VIAL SC ×2 (08:19→20:42)
[2018-11-17] MEDS: DOCUSATE SODIUM 100 MG CAP PO ×2 (08:52→20:39)
[2018-11-17] MEDS: ATORVASTATIN 40 MG TAB PO (20:38)
[2018-11-17] MEDS: INSULIN GLARGINE [LANTus] (100 UNITS/ML) SYG SC (20:42)
[2018-11-18] MEDS: ACCU-CHEK XX (02:00)
[2018-11-18 05:21] LABS: ADD MAN DIFF? NO
[2018-11-18 05:30] LABS: BASOPHILS % 0.3 % (0.0-2.0); EOSINOPHILS # 0.2 10^3/ul (0.0-0.5); EOSINOPHILS % 2.6 % (0.0-7.0); HEMATOCRIT 24.5 % (42.0-52.0); HEMOGLOBIN 8.2 g/dl (14.0-18.0); LYMPHOCYTES # 1.9 10^3/ul (0.8-2.9); LYMPHOCYTES % 29.5 % (15.0-51.0); MEAN CORPUSCULAR HEMOGLOBIN 28.8 pg (29.0-33.0); MEAN CORPUSCULAR HGB CONC 33.5 g/dl (32.0-37.0); MEAN PLATELET VOLUME 8.9 fl (7.4-10.4); MONOCYTE # 0.6 10^3/ul (0.3-0.9); MONOCYTES % 9.9 % (0.0-11.0); NEUTROPHIL # 3.6 10^3/ul (1.6-7.5); NEUTROPHILS % 57.4 % (39.0-77.0); PLATELET COUNT 365 10^3/UL (140-415); RED BLOOD COUNT 2.85 10^6/ul (4.70-6.10); RED CELL DISTRIBUTION WIDTH 13.9 % (11.5-14.5)
[2018-11-18 05:30] LABS: WHITE BLOOD COUNT 6.3 10^3/ul (4.8-10.8)
[2018-11-18 05:55] LABS: ANION GAP 2 (5-13); BLOOD UREA NITROGEN 26 mg/dl (7-20); CARBON DIOXIDE 28 mmol/L (21-31); CHLORIDE 102 mmol/L (97-110); CREATININE 0.95 mg/dl (0.61-1.24); Estimated GFR > 60 mL/min (>60); GLUCOSE 64 mg/dl (70-220); SODIUM 132 mmol/L (135-144)
[2018-11-18] MEDS: INSULIN ASPART [NOVOLOG] 3 ML PEN SC ×7 (08:00→20:47)
[2018-11-18] MEDS: POLYETHYLENE GLYCOL 17 GM PACKET PO (08:06)
[2018-11-18] MEDS: CEFEPIME 1GM/50 ML (PMX) 50 ML IVPB ×2 (08:06→20:51)
[2018-11-18] MEDS: CHOLECALCIFEROL 2,000 UNIT CAP PO (08:07)
[2018-11-18] MEDS: ASPIRIN (EC) 81 MG TAB PO (08:07)
[2018-11-18] MEDS: DOCUSATE SODIUM 100 MG CAP PO ×2 (08:07→20:51)
[2018-11-18] MEDS: CLOPIDOGREL 75 MG TAB PO (08:07)
[2018-11-18] MEDS: FLUCONAZOLE 200 MG TAB PO ×2 (08:07→20:50)
[2018-11-18] MEDS: LISINOPRIL 5 MG TAB PO (08:08)
[2018-11-18] MEDS: HEPARIN 5,000 UNIT/1 ML VIAL SC ×2 (08:15→20:49)
[2018-11-18] MEDS: INSULIN GLARGINE [LANTus] (100 UNITS/ML) SYG SC (20:48)
[2018-11-18] MEDS: ATORVASTATIN 40 MG TAB PO (20:51)
[2018-11-19] MEDS: ACCU-CHEK XX (02:00)
[2018-11-19 07:26] LABS: ADD MAN DIFF? NO
[2018-11-19 07:33] LABS: BASOPHILS % 0.6 % (0.0-2.0); EOSINOPHILS # 0.1 10^3/ul (0.0-0.5); EOSINOPHILS % 2.6 % (0.0-7.0); HEMATOCRIT 23.5 % (42.0-52.0); HEMOGLOBIN 7.9 g/dl (14.0-18.0); LYMPHOCYTES # 1.2 10^3/ul (0.8-2.9); LYMPHOCYTES % 23.7 % (15.0-51.0); MEAN CORPUSCULAR HEMOGLOBIN 29.3 pg (29.0-33.0); MEAN CORPUSCULAR HGB CONC 33.6 g/dl (32.0-37.0); MEAN PLATELET VOLUME 8.9 fl (7.4-10.4); MONOCYTE # 0.5 10^3/ul (0.3-0.9); MONOCYTES % 10.2 % (0.0-11.0); NEUTROPHIL # 3.1 10^3/ul (1.6-7.5); NEUTROPHILS % 62.5 % (39.0-77.0); PLATELET COUNT 331 10^3/UL (140-415); RED CELL DISTRIBUTION WIDTH 13.9 % (11.5-14.5)
[2018-11-19 07:58] LABS: ANION GAP 0 (5-13); BLOOD UREA NITROGEN 24 mg/dl (7-20); CALCIUM 7.9 mg/dl (8.4-10.2); CARBON DIOXIDE 30 mmol/L (21-31); CHLORIDE 103 mmol/L (97-110); CREATININE 0.87 mg/dl (0.61-1.24); Estimated GFR > 60 mL/min (>60); GLUCOSE 68 mg/dl (70-220); POTASSIUM 4.1 mmol/L (3.5-5.1); SODIUM 133 mmol/L (135-144)
[2018-11-19] MEDS: INSULIN ASPART [NOVOLOG] 3 ML PEN SC ×7 (08:00→21:00)
[2018-11-19] MEDS: ASPIRIN (EC) 81 MG TAB PO (08:28)
[2018-11-19] MEDS: CLOPIDOGREL 75 MG TAB PO (08:28)
[2018-11-19] MEDS: CHOLECALCIFEROL 2,000 UNIT CAP PO (08:28)
[2018-11-19] MEDS: LISINOPRIL 5 MG TAB PO (08:28)
[2018-11-19] MEDS: FLUCONAZOLE 200 MG TAB PO ×2 (08:28→21:31)
[2018-11-19] MEDS: HEPARIN 5,000 UNIT/1 ML VIAL SC ×2 (08:30→21:34)
[2018-11-19] MEDS: POLYETHYLENE GLYCOL 17 GM PACKET PO (08:30)
[2018-11-19] MEDS: CEFEPIME 1GM/50 ML (PMX) 50 ML IVPB ×2 (08:31→21:31)
[2018-11-19] MEDS: DOCUSATE SODIUM 100 MG CAP PO ×2 (12:35→21:31)
[2018-11-19] MEDS: ATORVASTATIN 40 MG TAB PO (21:31)
[2018-11-19] MEDS: INSULIN GLARGINE [LANTus] (100 UNITS/ML) SYG SC (21:34)
[2018-11-20] MEDS: ACCU-CHEK XX (02:00)
[2018-11-20] MEDS: INSULIN ASPART [NOVOLOG] 3 ML PEN SC ×7 (08:00→21:59)
[2018-11-20] MEDS: CEFEPIME 1GM/50 ML (PMX) 50 ML IVPB ×2 (08:35→21:58)
[2018-11-20] MEDS: CHOLECALCIFEROL 2,000 UNIT CAP PO (08:36)
[2018-11-20] MEDS: CLOPIDOGREL 75 MG TAB PO (08:36)
[2018-11-20] MEDS: DOCUSATE SODIUM 100 MG CAP PO ×2 (08:36→21:58)
[2018-11-20] MEDS: FLUCONAZOLE 200 MG TAB PO ×2 (08:36→21:58)
[2018-11-20] MEDS: LISINOPRIL 5 MG TAB PO (08:36)
[2018-11-20] MEDS: ASPIRIN (EC) 81 MG TAB PO (08:36)
[2018-11-20] MEDS: HEPARIN 5,000 UNIT/1 ML VIAL SC ×2 (08:42→22:01)
[2018-11-20] MEDS: POLYETHYLENE GLYCOL 17 GM PACKET PO (08:44)
[2018-11-20] MEDS: ATORVASTATIN 40 MG TAB PO (21:58)
[2018-11-20] MEDS: ZOLPIDEM 5 MG TAB PO (21:58)
[2018-11-20] MEDS: INSULIN GLARGINE [LANTus] (100 UNITS/ML) SYG SC (22:00)
[2018-11-21] MEDS: ACCU-CHEK XX (02:00)
[2018-11-21] MEDS: INSULIN ASPART [NOVOLOG] 3 ML PEN SC ×7 (08:00→20:44)
[2018-11-21] MEDS: CHOLECALCIFEROL 2,000 UNIT CAP PO (08:24)
[2018-11-21] MEDS: LISINOPRIL 5 MG TAB PO (08:24)
[2018-11-21] MEDS: ASPIRIN (EC) 81 MG TAB PO (08:24)
[2018-11-21] MEDS: FLUCONAZOLE 200 MG TAB PO ×2 (08:24→20:36)
[2018-11-21] MEDS: CLOPIDOGREL 75 MG TAB PO (08:25)
[2018-11-21] MEDS: POLYETHYLENE GLYCOL 17 GM PACKET PO (08:27)
[2018-11-21] MEDS: HEPARIN 5,000 UNIT/1 ML VIAL SC ×2 (08:30→20:44)
[2018-11-21] MEDS: DOCUSATE SODIUM 100 MG CAP PO ×2 (08:33→20:36)
[2018-11-21] MEDS: CEFEPIME 1GM/50 ML (PMX) 50 ML IVPB ×2 (10:01→20:35)
[2018-11-21] MEDS: ATORVASTATIN 40 MG TAB PO (20:36)
[2018-11-21] MEDS: INSULIN GLARGINE [LANTus] (100 UNITS/ML) SYG SC (20:42)
[2018-11-22] MEDS: ACCU-CHEK XX (01:54)
[2018-11-22] MEDS: INSULIN ASPART [NOVOLOG] 3 ML PEN SC ×7 (08:00→21:00)
[2018-11-22] MEDS: POLYETHYLENE GLYCOL 17 GM PACKET PO (08:07)
[2018-11-22] MEDS: ASPIRIN (EC) 81 MG TAB PO (08:07)
[2018-11-22] MEDS: DOCUSATE SODIUM 100 MG CAP PO ×2 (08:07→21:23)
[2018-11-22] MEDS: FLUCONAZOLE 200 MG TAB PO ×2 (08:07→21:23)
[2018-11-22] MEDS: HEPARIN 5,000 UNIT/1 ML VIAL SC ×2 (08:09→21:26)
[2018-11-22] MEDS: CEFEPIME 1GM/50 ML (PMX) 50 ML IVPB ×2 (08:11→21:22)
[2018-11-22] MEDS: LISINOPRIL 5 MG TAB PO (08:12)
[2018-11-22] MEDS: CLOPIDOGREL 75 MG TAB PO (08:16)
[2018-11-22] MEDS: CHOLECALCIFEROL 2,000 UNIT CAP PO (08:16)
[2018-11-22] MEDS: ATORVASTATIN 40 MG TAB PO (21:23)
[2018-11-22] MEDS: INSULIN GLARGINE [LANTus] (100 UNITS/ML) SYG SC (21:27)
[2018-11-23] MEDS: ACCU-CHEK XX (01:20)
[2018-11-23] MEDS: INSULIN ASPART [NOVOLOG] 3 ML PEN SC ×7 (08:00→20:29)
[2018-11-23] MEDS: HEPARIN 5,000 UNIT/1 ML VIAL SC ×2 (08:10→20:30)
[2018-11-23] MEDS: POLYETHYLENE GLYCOL 17 GM PACKET PO (08:11)
[2018-11-23] MEDS: CHOLECALCIFEROL 2,000 UNIT CAP PO (08:12)
[2018-11-23] MEDS: LISINOPRIL 5 MG TAB PO (08:12)
[2018-11-23] MEDS: ASPIRIN (EC) 81 MG TAB PO (08:12)
[2018-11-23] MEDS: CEFEPIME 1GM/50 ML (PMX) 50 ML IVPB ×2 (08:12→20:32)
[2018-11-23] MEDS: CLOPIDOGREL 75 MG TAB PO (08:12)
[2018-11-23] MEDS: DOCUSATE SODIUM 100 MG CAP PO ×2 (08:12→20:31)
[2018-11-23] MEDS: FLUCONAZOLE 200 MG TAB PO ×2 (08:12→20:31)
[2018-11-23] MEDS: INSULIN GLARGINE [LANTus] (100 UNITS/ML) SYG SC (20:30)
[2018-11-23] MEDS: ATORVASTATIN 40 MG TAB PO (20:31)
[2018-11-24] MEDS: ACCU-CHEK XX (01:48)
[2018-11-24] MEDS: INSULIN ASPART [NOVOLOG] 3 ML PEN SC ×7 (08:00→21:09)
[2018-11-24] MEDS: CLOPIDOGREL 75 MG TAB PO (08:35)
[2018-11-24] MEDS: CHOLECALCIFEROL 2,000 UNIT CAP PO (08:35)
[2018-11-24] MEDS: LISINOPRIL 5 MG TAB PO (08:36)
[2018-11-24] MEDS: ASPIRIN (EC) 81 MG TAB PO (08:36)
[2018-11-24] MEDS: FLUCONAZOLE 200 MG TAB PO ×2 (08:36→21:01)
[2018-11-24] MEDS: HEPARIN 5,000 UNIT/1 ML VIAL SC ×2 (08:36→21:09)
[2018-11-24] MEDS: POLYETHYLENE GLYCOL 17 GM PACKET PO (08:37)
[2018-11-24] MEDS: CEFEPIME 1GM/50 ML (PMX) 50 ML IVPB ×2 (08:37→21:02)
[2018-11-24] MEDS: DOCUSATE SODIUM 100 MG CAP PO ×2 (08:39→21:01)
[2018-11-24] MEDS: ZOLPIDEM 5 MG TAB PO (21:01)
[2018-11-24] MEDS: ATORVASTATIN 40 MG TAB PO (21:01)
[2018-11-24] MEDS: INSULIN GLARGINE [LANTus] (100 UNITS/ML) SYG SC (21:09)
[2018-11-25] MEDS: ACCU-CHEK XX (02:00)
[2018-11-25] MEDS: INSULIN ASPART [NOVOLOG] 3 ML PEN SC ×7 (08:00→20:39)
[2018-11-25] MEDS: CEFEPIME 1GM/50 ML (PMX) 50 ML IVPB ×2 (09:05→20:49)
[2018-11-25] MEDS: CLOPIDOGREL 75 MG TAB PO (09:06)
[2018-11-25] MEDS: ASPIRIN (EC) 81 MG TAB PO (09:06)
[2018-11-25] MEDS: CHOLECALCIFEROL 2,000 UNIT CAP PO (09:06)
[2018-11-25] MEDS: POLYETHYLENE GLYCOL 17 GM PACKET PO (09:06)
[2018-11-25] MEDS: FLUCONAZOLE 200 MG TAB PO ×2 (09:06→20:37)
[2018-11-25] MEDS: DOCUSATE SODIUM 100 MG CAP PO ×2 (09:06→20:37)
[2018-11-25] MEDS: LISINOPRIL 5 MG TAB PO (09:07)
[2018-11-25] MEDS: HEPARIN 5,000 UNIT/1 ML VIAL SC ×2 (09:08→20:48)
[2018-11-25] MEDS: ATORVASTATIN 40 MG TAB PO (20:37)
[2018-11-25] MEDS: INSULIN GLARGINE [LANTus] (100 UNITS/ML) SYG SC (20:49)
[2018-11-25] MEDS: ZOLPIDEM 5 MG TAB PO (22:30)
[2018-11-26] MEDS: ACCU-CHEK XX (02:00)
[2018-11-26 05:58] LABS: ADD MAN DIFF? NO
[2018-11-26 06:10] LABS: BASOPHILS % 0.6 % (0.0-2.0); EOSINOPHILS # 0.2 10^3/ul (0.0-0.5); EOSINOPHILS % 3.9 % (0.0-7.0); HEMOGLOBIN 7.7 g/dl (14.0-18.0); LYMPHOCYTES # 1.5 10^3/ul (0.8-2.9); LYMPHOCYTES % 29.8 % (15.0-51.0); MEAN CORPUSCULAR HEMOGLOBIN 29.1 pg (29.0-33.0); MEAN CORPUSCULAR HGB CONC 33.5 g/dl (32.0-37.0); MEAN CORPUSCULAR VOLUME 86.8 fl (82.0-101.0); MEAN PLATELET VOLUME 9.4 fl (7.4-10.4); MONOCYTE # 0.6 10^3/ul (0.3-0.9); MONOCYTES % 11.2 % (0.0-11.0); NEUTROPHIL # 2.8 10^3/ul (1.6-7.5); NEUTROPHILS % 54.3 % (39.0-77.0); PLATELET COUNT 286 10^3/UL (140-415); RED BLOOD COUNT 2.65 10^6/ul (4.70-6.10); RED CELL DISTRIBUTION WIDTH 14.2 % (11.5-14.5)
[2018-11-26 06:10] LABS: WHITE BLOOD COUNT 5.2 10^3/ul (4.8-10.8)
[2018-11-26 06:43] LABS: ANION GAP 1 (5-13); BLOOD UREA NITROGEN 26 mg/dl (7-20); CALCIUM 8.2 mg/dl (8.4-10.2); CARBON DIOXIDE 30 mmol/L (21-31); CHLORIDE 102 mmol/L (97-110); Estimated GFR > 60 mL/min (>60); GLUCOSE 138 mg/dl (70-220); SODIUM 133 mmol/L (135-144)
[2018-11-26] MEDS: INSULIN ASPART [NOVOLOG] 3 ML PEN SC ×7 (08:00→21:00)
[2018-11-26] MEDS: ASPIRIN (EC) 81 MG TAB PO (08:36)
[2018-11-26] MEDS: CEFEPIME 1GM/50 ML (PMX) 50 ML IVPB ×2 (08:36→21:09)
[2018-11-26] MEDS: CLOPIDOGREL 75 MG TAB PO (08:36)
[2018-11-26] MEDS: FLUCONAZOLE 200 MG TAB PO ×2 (08:37→21:09)
[2018-11-26] MEDS: LISINOPRIL 5 MG TAB PO (08:37)
[2018-11-26] MEDS: CHOLECALCIFEROL 2,000 UNIT CAP PO (08:37)
[2018-11-26] MEDS: POLYETHYLENE GLYCOL 17 GM PACKET PO (08:37)
[2018-11-26] MEDS: HEPARIN 5,000 UNIT/1 ML VIAL SC ×2 (08:42→21:14)
[2018-11-26] MEDS: DOCUSATE SODIUM 100 MG CAP PO ×2 (08:54→21:09)
[2018-11-26] MEDS: ATORVASTATIN 40 MG TAB PO (21:09)
[2018-11-26] MEDS: INSULIN GLARGINE [LANTus] (100 UNITS/ML) SYG SC (21:13)
[2018-11-26] MEDS: ZOLPIDEM 5 MG TAB PO (22:26)
[2018-11-27] MEDS: ACCU-CHEK XX (01:26)
[2018-11-27] MEDS: INSULIN ASPART [NOVOLOG] 3 ML PEN SC ×7 (08:00→22:11)
[2018-11-27] MEDS: CHOLECALCIFEROL 2,000 UNIT CAP PO (08:14)
[2018-11-27] MEDS: FLUCONAZOLE 200 MG TAB PO ×2 (08:14→21:57)
[2018-11-27] MEDS: CEFEPIME 1GM/50 ML (PMX) 50 ML IVPB ×2 (08:14→22:03)
[2018-11-27] MEDS: CLOPIDOGREL 75 MG TAB PO (08:14)
[2018-11-27] MEDS: ASPIRIN (EC) 81 MG TAB PO (08:14)
[2018-11-27] MEDS: LISINOPRIL 5 MG TAB PO (08:15)
[2018-11-27] MEDS: POLYETHYLENE GLYCOL 17 GM PACKET PO (08:16)
[2018-11-27] MEDS: HEPARIN 5,000 UNIT/1 ML VIAL SC ×2 (08:18→22:10)
[2018-11-27] MEDS: DOCUSATE SODIUM 100 MG CAP PO ×2 (08:45→21:57)
[2018-11-27] MEDS: ATORVASTATIN 40 MG TAB PO (21:57)
[2018-11-27] MEDS: ZOLPIDEM 5 MG TAB PO (22:02)
[2018-11-27] MEDS: INSULIN GLARGINE [LANTus] (100 UNITS/ML) SYG SC (22:10)
[2018-11-28] MEDS: ACCU-CHEK XX (02:00)
[2018-11-28] MEDS: INSULIN ASPART [NOVOLOG] 3 ML PEN SC ×7 (08:25→20:42)
[2018-11-28] MEDS: LISINOPRIL 5 MG TAB PO (08:32)
[2018-11-28] MEDS: POLYETHYLENE GLYCOL 17 GM PACKET PO (08:32)
[2018-11-28] MEDS: ASPIRIN (EC) 81 MG TAB PO (08:32)
[2018-11-28] MEDS: CEFEPIME 1GM/50 ML (PMX) 50 ML IVPB ×2 (08:33→20:45)
[2018-11-28] MEDS: CHOLECALCIFEROL 2,000 UNIT CAP PO (08:33)
[2018-11-28] MEDS: FLUCONAZOLE 200 MG TAB PO ×2 (08:33→20:45)
[2018-11-28] MEDS: CLOPIDOGREL 75 MG TAB PO (08:33)
[2018-11-28] MEDS: HEPARIN 5,000 UNIT/1 ML VIAL SC ×2 (08:37→20:41)
[2018-11-28] MEDS: DOCUSATE SODIUM 100 MG CAP PO ×2 (08:54→22:14)
[2018-11-28] MEDS: AMLODIPINE 5 MG TAB PO (13:18)
[2018-11-28] MEDS: INSULIN GLARGINE [LANTus] (100 UNITS/ML) SYG SC (20:40)
[2018-11-28] MEDS: ATORVASTATIN 40 MG TAB PO (20:45)
[2018-11-28] MEDS: ZOLPIDEM 5 MG TAB PO (22:14)
[2018-11-28] MEDS: MUPIROCIN 2% 22 GM OINT TOP (22:23)
[2018-11-28] MEDS: MUPIROCIN 2% 15 GM CR TOP (22:35)
[2018-11-29] MEDS: ACCU-CHEK XX (02:09)
[2018-11-29] MEDS: INSULIN ASPART [NOVOLOG] 3 ML PEN SC ×7 (08:00→20:34)
[2018-11-29] MEDS: MUPIROCIN 2% 15 GM CR TOP ×2 (09:00→20:41)
[2018-11-29] MEDS: FLUCONAZOLE 200 MG TAB PO ×2 (09:17→20:35)
[2018-11-29] MEDS: HEPARIN 5,000 UNIT/1 ML VIAL SC ×2 (09:17→20:35)
[2018-11-29] MEDS: CLOPIDOGREL 75 MG TAB PO (09:17)
[2018-11-29] MEDS: POLYETHYLENE GLYCOL 17 GM PACKET PO (09:17)
[2018-11-29] MEDS: DOCUSATE SODIUM 100 MG CAP PO ×2 (09:17→20:35)
[2018-11-29] MEDS: CHOLECALCIFEROL 2,000 UNIT CAP PO (09:17)
[2018-11-29] MEDS: CEFEPIME 1GM/50 ML (PMX) 50 ML IVPB ×2 (09:17→20:35)
[2018-11-29] MEDS: LISINOPRIL 5 MG TAB PO (09:18)
[2018-11-29] MEDS: AMLODIPINE 5 MG TAB PO (09:18)
[2018-11-29] MEDS: MUPIROCIN 2% 22 GM OINT TOP ×2 (09:19→20:36)
[2018-11-29] MEDS: INSULIN GLARGINE [LANTus] (100 UNITS/ML) SYG SC (20:33)
[2018-11-29] MEDS: ZOLPIDEM 5 MG TAB PO (21:32)
[2018-11-30] MEDS: INSULIN ASPART [NOVOLOG] 3 ML PEN SC ×8 (02:22→21:38)
[2018-11-30] MEDS: ACCU-CHEK XX (04:30)
[2018-11-30 06:28] LABS: ADD MAN DIFF? NO
[2018-11-30 06:32] LABS: BASOPHILS % 0.4 % (0.0-2.0); EOSINOPHILS # 0.2 10^3/ul (0.0-0.5); EOSINOPHILS % 3.4 % (0.0-7.0); HEMATOCRIT 24.4 % (42.0-52.0); HEMOGLOBIN 8.2 g/dl (14.0-18.0); LYMPHOCYTES # 1.2 10^3/ul (0.8-2.9); LYMPHOCYTES % 24.6 % (15.0-51.0); MEAN CORPUSCULAR HEMOGLOBIN 29.9 pg (29.0-33.0); MEAN CORPUSCULAR HGB CONC 33.6 g/dl (32.0-37.0); MEAN CORPUSCULAR VOLUME 89.1 fl (82.0-101.0); MEAN PLATELET VOLUME 9.3 fl (7.4-10.4); MONOCYTE # 0.5 10^3/ul (0.3-0.9); MONOCYTES % 10.9 % (0.0-11.0); NEUTROPHILS % 60.1 % (39.0-77.0); PLATELET COUNT 268 10^3/UL (140-415); RED BLOOD COUNT 2.74 10^6/ul (4.70-6.10); RED CELL DISTRIBUTION WIDTH 14.4 % (11.5-14.5)
[2018-11-30 07:00] LABS: ANION GAP 0 (5-13); BLOOD UREA NITROGEN 24 mg/dl (7-20); CALCIUM 8.2 mg/dl (8.4-10.2); CARBON DIOXIDE 29 mmol/L (21-31); CHLORIDE 105 mmol/L (97-110); Estimated GFR > 60 mL/min (>60); GLUCOSE 99 mg/dl (70-220); POTASSIUM 4.3 mmol/L (3.5-5.1); SODIUM 134 mmol/L (135-144)
[2018-11-30] MEDS: MUPIROCIN 2% 15 GM CR TOP ×2 (09:00→21:00)
[2018-11-30] MEDS: FLUCONAZOLE 200 MG TAB PO ×2 (09:17→21:23)
[2018-11-30] MEDS: DOCUSATE SODIUM 100 MG CAP PO ×2 (09:17→21:23)
[2018-11-30] MEDS: CHOLECALCIFEROL 2,000 UNIT CAP PO (09:17)
[2018-11-30] MEDS: CEFEPIME 1GM/50 ML (PMX) 50 ML IVPB ×2 (09:17→21:23)
[2018-11-30] MEDS: AMLODIPINE 5 MG TAB PO (09:18)
[2018-11-30] MEDS: POLYETHYLENE GLYCOL 17 GM PACKET PO (09:18)
[2018-11-30] MEDS: LISINOPRIL 5 MG TAB PO (09:18)
[2018-11-30] MEDS: MUPIROCIN 2% 22 GM OINT TOP ×2 (09:19→21:41)
[2018-11-30] MEDS: HEPARIN 5,000 UNIT/1 ML VIAL SC (09:27)
[2018-11-30] MEDS: INSULIN GLARGINE [LANTus] (100 UNITS/ML) SYG SC (21:39)
[2018-11-30] MEDS: ZOLPIDEM 5 MG TAB PO (21:39)
[2018-12-01] MEDS: CEFEPIME 1GM/50 ML (PMX) 50 ML IVPB ×2 (08:05→22:01)
[2018-12-01] MEDS: AMLODIPINE 5 MG TAB PO (08:07)
[2018-12-01] MEDS: POLYETHYLENE GLYCOL 17 GM PACKET PO (08:07)
[2018-12-01] MEDS: LISINOPRIL 5 MG TAB PO (08:07)
[2018-12-01] MEDS: FLUCONAZOLE 200 MG TAB PO ×2 (08:07→21:59)
[2018-12-01] MEDS: MUPIROCIN 2% 22 GM OINT TOP ×2 (08:08→22:10)
[2018-12-01] MEDS: INSULIN ASPART [NOVOLOG] 3 ML PEN SC ×7 (08:10→22:08)
[2018-12-01] MEDS: CHOLECALCIFEROL 2,000 UNIT CAP PO (08:17)
[2018-12-01] MEDS: DOCUSATE SODIUM 100 MG CAP PO ×2 (08:17→21:59)
[2018-12-01] MEDS: INSULIN GLARGINE [LANTus] (100 UNITS/ML) SYG SC (22:09)
[2018-12-01] MEDS: ZOLPIDEM 5 MG TAB PO (23:04)
[2018-12-02 05:59] LABS: ADD MAN DIFF? NO
[2018-12-02 06:09] LABS: WHITE BLOOD COUNT 5.1 10^3/ul (4.8-10.8)
[2018-12-02 06:09] LABS: BASOPHILS % 0.4 % (0.0-2.0); EOSINOPHILS # 0.2 10^3/ul (0.0-0.5); EOSINOPHILS % 3.7 % (0.0-7.0); HEMATOCRIT 24.1 % (42.0-52.0); HEMOGLOBIN 8.1 g/dl (14.0-18.0); LYMPHOCYTES # 1.3 10^3/ul (0.8-2.9); LYMPHOCYTES % 26.1 % (15.0-51.0); MEAN CORPUSCULAR HGB CONC 33.6 g/dl (32.0-37.0); MEAN CORPUSCULAR VOLUME 89.3 fl (82.0-101.0); MEAN PLATELET VOLUME 9.3 fl (7.4-10.4); MONOCYTE # 0.5 10^3/ul (0.3-0.9); MONOCYTES % 10.5 % (0.0-11.0); NEUTROPHILS % 58.9 % (39.0-77.0); PLATELET COUNT 264 10^3/UL (140-415); RED CELL DISTRIBUTION WIDTH 14.1 % (11.5-14.5)
[2018-12-02 06:33] LABS: ANION GAP 0 (5-13); BLOOD UREA NITROGEN 28 mg/dl (7-20); CALCIUM 8.1 mg/dl (8.4-10.2); CARBON DIOXIDE 28 mmol/L (21-31); CHLORIDE 105 mmol/L (97-110); CREATININE 0.91 mg/dl (0.61-1.24); Estimated GFR > 60 mL/min (>60); GLUCOSE 111 mg/dl (70-220); SODIUM 133 mmol/L (135-144)
[2018-12-02] MEDS: INSULIN ASPART [NOVOLOG] 3 ML PEN SC ×7 (08:00→20:48)
[2018-12-02] MEDS: CEFEPIME 1GM/50 ML (PMX) 50 ML IVPB ×2 (08:25→20:43)
[2018-12-02] MEDS: POLYETHYLENE GLYCOL 17 GM PACKET PO (08:26)
[2018-12-02] MEDS: CHOLECALCIFEROL 2,000 UNIT CAP PO (08:27)
[2018-12-02] MEDS: FLUCONAZOLE 200 MG TAB PO ×2 (08:27→20:43)
[2018-12-02] MEDS: LISINOPRIL 5 MG TAB PO (08:27)
[2018-12-02] MEDS: AMLODIPINE 5 MG TAB PO (08:27)
[2018-12-02] MEDS: MUPIROCIN 2% 22 GM OINT TOP ×2 (08:28→20:44)
[2018-12-02] MEDS: DOCUSATE SODIUM 100 MG CAP PO ×2 (08:36→20:43)
[2018-12-02] MEDS: INSULIN GLARGINE [LANTus] (100 UNITS/ML) SYG SC (20:46)
[2018-12-02] MEDS: ZOLPIDEM 5 MG TAB PO (20:52)
[2018-12-03] MEDS: INSULIN ASPART [NOVOLOG] 3 ML PEN SC ×7 (08:02→20:44)
[2018-12-03] MEDS: AMLODIPINE 5 MG TAB PO (08:04)
[2018-12-03] MEDS: DOCUSATE SODIUM 100 MG CAP PO ×2 (08:04→21:47)
[2018-12-03] MEDS: LISINOPRIL 5 MG TAB PO (08:04)
[2018-12-03] MEDS: FLUCONAZOLE 200 MG TAB PO ×2 (08:05→20:43)
[2018-12-03] MEDS: CHOLECALCIFEROL 2,000 UNIT CAP PO (08:05)
[2018-12-03] MEDS: POLYETHYLENE GLYCOL 17 GM PACKET PO (08:05)
[2018-12-03] MEDS: CEFEPIME 1GM/50 ML (PMX) 50 ML IVPB ×2 (08:06→20:43)
[2018-12-03] MEDS: MUPIROCIN 2% 22 GM OINT TOP ×2 (12:32→20:44)
[2018-12-03] MEDS: INSULIN GLARGINE [LANTus] (100 UNITS/ML) SYG SC (20:50)
[2018-12-03] MEDS: ZOLPIDEM 5 MG TAB PO (21:47)
[2018-12-04] MEDS: INSULIN ASPART [NOVOLOG] 3 ML PEN SC ×6 (08:24→18:14)
[2018-12-04] MEDS: CEFEPIME 1GM/50 ML (PMX) 50 ML IVPB (08:51)
[2018-12-04] MEDS: DOCUSATE SODIUM 100 MG CAP PO (08:51)
[2018-12-04] MEDS: AMLODIPINE 5 MG TAB PO (08:52)
[2018-12-04] MEDS: CHOLECALCIFEROL 2,000 UNIT CAP PO (08:52)
[2018-12-04] MEDS: MUPIROCIN 2% 22 GM OINT TOP (08:53)
[2018-12-04] MEDS: POLYETHYLENE GLYCOL 17 GM PACKET PO (08:53)
[2018-12-04] MEDS: LISINOPRIL 5 MG TAB PO (08:53)
[2018-12-04] MEDS: FLUCONAZOLE 200 MG TAB PO (09:01)
== END 2018-12-04 18:55 | DRG 252 ==
LOC: 2NE 11-12 23:22 → FTE 17:32 → 2NE 20:15
PROC: 0Y6X0Z1 Detachment at Right 5th Toe, High, Open Approach (ICD-10-PCS; principal; 2018-10-26 12:35)
PROC: [UNRECOGNIZED PROCEDURE] (2018-10-26 12:35)
PROC: 0Y6X0Z0 Detachment at Right 5th Toe, Complete, Open Approach (ICD-10-PCS; 2018-10-26 12:35)
PROC: 0Y6X0Z0 Detachment at Right 5th Toe, Complete, Open Approach (ICD-10-PCS; 2018-10-26 12:35)
PROC: 0HRMXK3 Replacement of Right Foot Skin with Nonautologous Tissue Substitute, Full Thickness, External Approach (ICD-10-PCS; 2018-10-26 12:35)
PROC: 0KBV0ZZ Excision of Right Foot Muscle, Open Approach (ICD-10-PCS; 2018-10-26 12:35)
PROC: 0KBV0ZZ Excision of Right Foot Muscle, Open Approach (ICD-10-PCS; 2018-10-26 12:35)
PROC: 0LBV0ZZ Excision of Right Foot Tendon, Open Approach (ICD-10-PCS; 2018-10-26 12:35)
PROC: 0HRMXK3 Replacement of Right Foot Skin with Nonautologous Tissue Substitute, Full Thickness, External Approach (ICD-10-PCS; 2018-10-26 12:35)
PROC: 0Y9M0ZX Drainage of Right Foot, Open Approach, Diagnostic (ICD-10-PCS; 2018-10-26 12:35)
PROC: 30233N1 Transfusion of Nonautologous Red Blood Cells into Peripheral Vein, Percutaneous Approach (ICD-10-PCS; 2018-10-26 12:35)
DX: E11.52 Type 2 diabetes mellitus with diabetic peripheral angiopathy with gangrene (principal); A48.0 Gas gangrene; M86.8X7 Other osteomyelitis, ankle and foot; L03.115 Cellulitis of right lower limb; E87.3 Alkalosis; E87.1 Hypo-osmolality and hyponatremia; M86.9 Osteomyelitis, unspecified; E11.69 Type 2 diabetes mellitus with other specified complication; E11.621 Type 2 diabetes mellitus with foot ulcer; E11.628 Type 2 diabetes mellitus with other skin complications; E11.42 Type 2 diabetes mellitus with diabetic polyneuropathy; E11.65 Type 2 diabetes mellitus with hyperglycemia; L97.519 Non-pressure chronic ulcer of other part of right foot with unspecified severity; I73.9 Peripheral vascular disease, unspecified; I10 Essential (primary) hypertension; F17.200 Nicotine dependence, unspecified, uncomplicated; D64.9 Anemia, unspecified; E86.0 Dehydration; E78.5 Hyperlipidemia, unspecified; N43.3 Hydrocele, unspecified; Z79.4 Long term (current) use of insulin; E11.51 Type 2 diabetes mellitus with diabetic peripheral angiopathy without gangrene; N50.89 Other specified disorders of the male genital organs
CPT/HCPCS: 36430; 71045; 73590; 73610-RT; 73630; 73718; 75630; 76870; 80048; 80053; 80061; 80202; 82043; 82270; 82306; 82565; 82652; 82962; 83036; 83735; 84100; 84145; 84443; 84520; 85014; 85018; 85025; 85049; 85610; 85651; 85670; 85730; 86140; 86850; 86900; 86901; 86920; 87040-91; 87070; 87075; 87102; 87116; 88304; 88305; 88311; 93922; 93970; 97110; 97116; 97161; 97530; 99285-25